=== PATIENT | female | born 1960 | race Caucasian/White ===

== ENCOUNTER 2016-06-26 08:14 | Inpatient (IN) | payer OTHER ==
[2016-06-19 13:57] VITALS: BMI 45.0
--- NOTE | 2016-06-19 14:47 | PAT Medication Instructions ---
Service Date Jun 19, 2016. Current Home Medication List Albuterol Sulfate (Proair Hfa), 2 PUFFS PO PRN Aripiprazole (Abilify), 20 MG PO HS Aspirin (Aspirin Ec), 81 MG PO QAM Buspirone Hcl (Buspirone Hcl), 1 TAB PO TID Clonazepam (Klonopin), 1 MG PO BID Cyclobenzaprine Hcl (Flexeril), 10 MG PO TID Furosemide (Lasix), 40 MG PO QAM Gabapentin (Neurontin), 200 MG PO TID Gabapentin (Neurontin), 300 MG PO HS Levothyroxine Sodium (Levothyroxine Sodium), 1 TAB PO QAM Lisinopril (Zestril), 10 MG PO QAM Meloxicam (Mobic), 7.5 MG PO BID Metformin Hcl (Glucophage *), 850 MG PO BID Metoprolol Succ (Toprol Xl) (Toprol-Xl), 75 MG PO HS Multiple Vitamin (Multivitamin), 1 TAB PO QAM Oxybutynin Chloride (Ditropan), 2.5 MG PO BID Rabeprazole Sodium (Aciphex), 20 MG PO QAM Sennosides-Docusate Sodium (Stool Softener), 1-2 TAB PO BID Simvastatin (Zocor), 40 MG PO QPM Tramadol (Ultram), 50 MG PO Q6H PRN for RN Trazodone Hcl (Trazodone), 300 MG PO HS Vortioxetine HBr (Trintellix), 30 MG PO QAM [Amphetamine Salts], 30 MG PO AM/NOON [Klor Con], 10 MEQ PO QAM [Naproxen], 1 TAB PO BID Medication Instructions For Your Scheduled Surgery - Check with surgeon for instructions: Meloxicam (Mobic), 7.5 MG PO BID [Naproxen], 1 TAB PO BID - Hold the following medications 48 hours prior to surgery: Metformin Hcl (Glucophage *), 850 MG PO BID - Hold the following medications the morning of surgery: [Klor Con], 10 MEQ PO QAM [Amphetamine Salts], 30 MG PO AM/NOON Sennosides-Docusate Sodium (Stool Softener), 1-2 TAB PO BID Multiple Vitamin (Multivitamin), 1 TAB PO QAM Oxybutynin Chloride (Ditropan), 2.5 MG PO BID Lisinopril (Zestril), 10 MG PO QAM Cyclobenzaprine Hcl (Flexeril), 10 MG PO TID Furosemide (Lasix), 40 MG PO QAM - Take the following medications the morning of surgery with a sip of water: Rabeprazole Sodium (Aciphex), 20 MG PO QAM Levothyroxine Sodium (Levothyroxine Sodium), 1 TAB PO QAM Gabapentin (Neurontin), 200 MG PO TID Buspirone Hcl (Buspirone Hcl), 1 TAB PO TID Clonazepam (Klonopin), 1 MG PO BID Albuterol Sulfate (Proair Hfa), 2 PUFFS PO PRN (bring with you to hospital morning of surgery) Aspirin (Aspirin Ec), 81 MG PO QAM (okay unless otherwise per surgeon) Tramadol (Ultram), 50 MG PO Q6H PRN for RN (okay to take up to 4 hours prior to surgery if needed) Vortioxetine HBr (Trintellix), 30 MG PO QAM - Take the following medications as scheduled the night before surgery: [Amphetamine Salts], 30 MG PO AM/NOON Trazodone Hcl (Trazodone), 300 MG PO HS Gabapentin (Neurontin), 300 MG PO HS Simvastatin (Zocor), 40 MG PO QPM Sennosides-Docusate Sodium (Stool Softener), 1-2 TAB PO BID Oxybutynin Chloride (Ditropan), 2.5 MG PO BID Metoprolol Succ (Toprol Xl) (Toprol-Xl), 75 MG PO HS Gabapentin (Neurontin), 200 MG PO TID Cyclobenzaprine Hcl (Flexeril), 10 MG PO TID Buspirone Hcl (Buspirone Hcl), 1 TAB PO TID Clonazepam (Klonopin), 1 MG PO BID Aripiprazole (Abilify), 20 MG PO HS Albuterol Sulfate (Proair Hfa), 2 PUFFS PO PRN Tramadol (Ultram), 50 MG PO Q6H PRN for RN If you have any questions please call us at [phone] (Sheryl Mehta PA-C) or [phone] or [phone]
--- NOTE | 2016-06-19 15:35 | DIAGNOSTIC IMAGING REPORT ---
CHEST 2 VIEWS ROUTINE CLINICAL HISTORY: Preoperative evaluation. COMPARISON STUDY: Chest radiograph and chest CT July 24, 2012 FINDINGS: Lung volumes are normal. There is no pneumothorax or pleural effusion. Pulmonary vascularity is normal. There is mild cardiomegaly. No consolidation is identified. IMPRESSION: 1. No acute cardiopulmonary findings. 2. Mild cardiomegaly. Electronically signed by: Gallito Anne M.D. 06/19/2016 3:33 PM Dictated Date/Time: 06/19/2016 3:32 PM
[2016-06-19 15:58] LABS: BASO % 0.5 %; BASO ABS # 0.03 K/uL (0-0.2); COMPLETE YES; EOS % 4.9 %; HEMATOCRIT 37.4 % (37-47); IG% 0.5 %; LYMPH % 38.3 %; LYMPH ABS # 2.17 K/uL (1.2-3.4); MEAN CELL VOLUME 89.9 fL (80-100); MEAN CORPUSCULAR HEMOGLOBIN 28.4 pg (25-34); MEAN CORPUSCULAR HGB CONC 31.6 g/dl (32-36); MONO % 6.7 %; NEUT % 49.1 %; PLATELET COUNT 237 K/uL (130-400); RED BLOOD COUNT 4.16 M/uL (4.2-5.4); WHITE BLOOD COUNT 5.67 K/uL (4.8-10.8)
[2016-06-19 16:24] LABS: BUN/CREATININE RATIO 22.8 (10-20); CALCIUM 9.2 mg/dl (8.5-10.1); CREATININE 0.99 mg/dl (0.60-1.20); POTASSIUM 3.9 mmol/L (3.5-5.1)
[2016-06-26] VITALS (8 sets, daily range): BP systolic 126–191; BP diastolic 80–97; PULSE 73–81; TEMP 36.5–36.8; O2SAT 92–99; Ht 175.3 cm; Wt 139.1 kg
[~2016-06-26] VITALS: Ht 175.3 cm; Wt 139.1 kg
--- NOTE | 2016-06-26 07:35 | History & Physical Bridge Note ---
H&P Re-Evaluation Bridge Note: I have examined the patient, reviewed the History & Physical and in the interval since the performance of the History & Physical I have noted the following changes of clinical significance: No changes noted
--- NOTE | 2016-06-26 08:10 | HISTORY & PHYSICAL EXAMINATION ---
DATE OF ADMISSION: 06/26/2016 CHIEF COMPLAINT: Low back pain with bilateral leg claudication. HISTORY OF PRESENT ILLNESS: Ms. Aquino is an individual who has been having symptoms in the lower portion of her back affecting both legs over the past 4 months or so. There was an episode over the summer where she felt something pop in her back and felt numbness going down the right than left hand side. Symptoms were constant. She was seen by pain management and had an MRI performed. She was sent to pain management who did not believe she was a candidate for injections and was sent to our office for surgical evaluation. Her symptoms are quite significant at this point. She has become very sedentary secondary to her pain. She denies any elizabeth weakness in her legs. PAST MEDICAL HISTORY: Significant for cholecystectomy, tonsillectomy, tubal ligation. She also suffers from alcoholism, arthritis, asthma, depression, diabetes, shortness of breath, hypercholesterolemia, obesity, cholecystitis, hypertension, heart murmur, irregular heartbeat. CURRENT MEDICATIONS: Include etodolac, clonazepam, fluoxetine, Topamax, Singulair, Zyprexa, Ritalin, simvastatin, and triamcinolone/hydrochlorothiazide. ALLERGIES: SHE HAS ALLERGIES TO PENICILLIN, VALIUM AND WELLBUTRIN. REVIEW OF SYSTEMS: Recorded in the patient's medical history. SOCIAL HISTORY: The patient is disabled. She is single, 2 children. Denies any current alcohol use, is a former smoker, quit in 2007 with significance up 2-1/2 pack a day history for 30 years. PHYSICAL EXAMINATION: GENERAL: She stands at 5 feet, 9 inches, 250 pounds. Moves slowly about the exam room. MUSCULOSKELETAL: Lower extremity motor exam reveals no focal atrophy. Strength and sensation are grossly intact. Full range of motion of her hips and knees. Gait is stable. Babinski is negative. There is no clonus. The patient is alert and oriented. Visual troy grossly intact. CARDIOVASCULAR EXAMINATION: Reveals no gross abnormalities. ABDOMEN: Soft, nontender. EXTREMITIES: Calves are supple and nontender. RADIOGRAPHIC IMAGES: MRI performed in March 2016 is available for review. This reveals significant spinal stenosis L4-5, which is severe. There is facet arthropathy with bilateral facet joint and cysts compromise the canal. While she has multilevel degenerative disc disease, L4-5 is the only level with significant neurologic compression. ASSESSMENT: L4-5 spinal stenosis which is severe. PLAN: At this point, she is not deemed a candidate for possible injections. Based on her symptoms we believe that she was a surgical candidate. Will perform a lumbar decompression at the L4-5 levels will be done in conjunction with instrumented fusion, we will have to resect a large portion of facet joints if present. Risks and benefits were discussed in detail. After thorough discussion, the patient would like to proceed with surgery as outlined above. We will make necessary arrangements for this. ASHA
[~2016-06-26 08:14] MED LIST: ABL10 PO; ALBU1AER9 PO; AMPHETAMINE SALTS PO; ASPI81TA28 PO; BUSP5TAB59 PO; CLON1TAB3 PO; CYCL10TA6 PO; FRS/40 PO; GABA-112 PO; GABA-113 PO; GLC850 PO; KLOR CON PO; LACTATED RINGER'S 1000ML 1,000 ML IV SCH; LEVO50TA6 PO; LISI-461 PO; MELO7.5T5 PO; METO50TA7 PO; MULTTAB58 PO; NAPROXEN PO; OXYB5TAB74 PO; RABE20TA5 PO; SENNTAB23 PO; SIMV40TA4 PO; TRAM-10 PO; TRAZ100T29 PO; VORT10TA12 PO
[2016-06-26] MEDS ORDERED: POTA10CA28 PO (08:44)
[2016-06-26] MEDS ORDERED: FENTANYL CITRATE INJ 50 MCG/1 ML 2 ML VIAL ONE ×2 (09:14→12:20)
[2016-06-26] MEDS ORDERED: MIDAZOLAM HCL 1 MG/ML 2ML VIAL ONE (09:14)
[2016-06-26] MEDS ORDERED: ALBUT/IPRATROP 3MG/0.5MG NEB 3 ML VIAL INH ONE (09:30)
[2016-06-26] MEDS ORDERED: ATROPINE SULFATE 0.1 MG/ML 5ML SYR IV PRN (09:30)
[2016-06-26] MEDS ORDERED: EpHEDrine SULFATE INJ 50 MG/ML AMP IV PRN (09:30)
[2016-06-26] MEDS ORDERED: PHENYLEPHRINE 100MCG/ML 5ML SYR IV PRN (09:30)
[2016-06-26] MEDS ORDERED: HYDROmorphone INJ 2 MG/ML SYR/VIAL IV PRN (09:30)
[2016-06-26] MEDS ORDERED: ONDANSETRON INJ 2 MG/ML 2 ML VIAL IV PRN ×2 (09:30→12:45)
[2016-06-26] MEDS ORDERED: CLINDAMYCIN 600 MG/54 ML D5W IV ONE (10:05)
[2016-06-26] MEDS ORDERED: GLYCOPYRROLATE INJ 0.2 MG/ML VIAL ONE (10:22)
[2016-06-26] MEDS ORDERED: PROPOFOL IV EMULSION 10 MG/ML 20 ML VIAL IV ONE ×2 (10:22→12:29)
[2016-06-26] MEDS ORDERED: NEOSTIGMINE METHYLSULFATE 1 MG/ML 10ML VIAL ONE (10:22)
[2016-06-26] MEDS ORDERED: ROCURONIUM BROMIDE 10 MG/ML 5 ML VIAL ONE (10:22)
[2016-06-26] MEDS ORDERED: LIDOCAINE 2% 20 MG/ML 5ML SYR ONE (10:22)
[2016-06-26] MEDS ORDERED: ONDANSETRON INJ 2 MG/ML 2 ML VIAL ONE (10:23)
[2016-06-26] MEDS ORDERED: DEXAMETHASONE SOD INJ 4 MG/ML VIAL ONE (10:23)
[2016-06-26] MEDS ORDERED: HYDROmorphone INJ 2 MG/ML SYR/VIAL ONE (10:56)
[2016-06-26] MEDS ORDERED: BUPIVACAINE/EPINEPHRINE 0.5% MPF 1:200,000 30 ML VIAL INJ ONE ×2 (11:06→12:28)
[2016-06-26] MEDS ORDERED: BACITRACIN 50000 UNIT VIAL IR ONE (12:28)
[2016-06-26] MEDS ORDERED: FLOSEAL HEMOSTATIC MATRIX 10ML TOP ONE (12:28)
[2016-06-26] MEDS ORDERED: SODIUM CHLORIDE 0.9% 1000ML 1,000 ML IV SCH (12:37)
--- NOTE | 2016-06-26 12:37 | [facility] Post Operative Brief Note ---
Immediate Operative Summary Operative Date Jun 26, 2016. Pre-Operative Diagnosis Lumbar Spinal Stenosis L4-L5 Post-Operative Diagnosis Lumbar Spinal Stenosis L4-L5 Procedure(s) Performed tlif Surgeon Dr. Rainey Claim Clinician Surgeon(s) EFE Banerjee Estimated Blood Loss 200 Findings stenosis Specimens none per surgeon
--- NOTE | 2016-06-26 12:43 | DIAGNOSTIC IMAGING REPORT ---
LUMBAR SPINE, INTRAOPERATIVE FLUOROSCOPY HISTORY: L4-5 decompression/fusion.. FLUOROSCOPY TIME: 22 seconds. FINDINGS: Intraoperative fluoroscopy was provided for the lumbar spine. 2 fluoroscopic spot images were obtained. L4-5 decompression and fusion. The hardware appears intact. There are pedicle screws and rods. IMPRESSION: Fluoroscopy provided for a L4-5 decompression/fusion. Electronically signed by: Jeff Noriega M.D. 06/26/2016 12:41 PM Dictated Date/Time: 06/26/2016 12:40 PM
[2016-06-26] MEDS ORDERED: MAGNESIUM HYDROXIDE SUSP 30 ML UDC PO PRN (12:45)
[2016-06-26] MEDS ORDERED: NALOXONE HCL 0.4 MG/1 ML VIAL/CARP IV PRN ×2 (12:45)
[2016-06-26] MEDS ORDERED: SOD PHOSPHATE/SOD BIPHOSPHATE ENEMA 132 ML BTL PR PRN (12:45)
[2016-06-26] MEDS ORDERED: METOCLOPRAMIDE HCL INJ 5 MG/ML 2 ML VIAL IV PRN (12:45)
[2016-06-26] MEDS ORDERED: DO NOT ADMINISTER PNEUMOCOCCAL VACCINE PRN ×2 (12:45)
[2016-06-26] MEDS ORDERED: DO NOT ADMINISTER FLU VACCINE PRN ×3 (12:45)
[2016-06-26] MEDS ORDERED: hydrOXYzine HCL 25 MG TAB PO PRN (12:45)
[2016-06-26] MEDS ORDERED: PROMETHAZINE HCL INJ 12.5 MG in SODIUM CHLORIDE 0.9% 50ML 50 ML IV PRN (12:45)
[2016-06-26] MEDS ORDERED: ACETAMINOPHEN IV 100 ML IV PRN (12:45)
[2016-06-26] MEDS ORDERED: LORAZEPAM INJ 0.5 MG in SYRINGE 0 ML IV PRN (12:45)
[2016-06-26] MEDS ORDERED: ALBUTEROL HFA 8 GM INHALER INH PRN (12:45)
[2016-06-26] MEDS ORDERED: FAMOTIDINE 20 MG TAB PO PRN (12:45)
[2016-06-26] MEDS ORDERED: ALUMINUM/MAGNESIUM SUSP 30 ML UDC PO PRN (12:45)
[2016-06-26] MEDS ORDERED: BISACODYL 10 MG SUPP PR PRN (12:45)
[2016-06-26] MEDS ORDERED: LORAZEPAM 0.5 MG TAB PO PRN (12:45)
[2016-06-26] MEDS ORDERED: ACETAMINOPHEN 500 MG TAB PO PRN (12:45)
[2016-06-26] MEDS ORDERED: PHARMACY GLYCEMIC MGMT CONSULT PRN (12:51)
--- NOTE | 2016-06-26 13:29 | OPERATIVE REPORT ---
DATE OF OPERATION: 06/26/2016 PREOPERATIVE DIAGNOSIS: Spinal stenosis L4-L5. POSTOPERATIVE DIAGNOSIS: Same. PROCEDURES PERFORMED: 1. Lumbar decompression, medial facetectomy, and foraminotomy L3-L4, L4-L5. 2. Posterior spinal fusion L4-L5. 3. Placement of posterior instrumentation using Orthros rods and screws L4-L5. 4. Interbody fusion L4-L5. 5. Placement of PEEK cage 12 x 22 mm at L4-L5. 6. Placement of locally harvested morcellized autograft in posterior gutters. 7. Placement of Infuse collagen sponge combined with Mastergraft in posterior gutters and Anabella bone grafting in interbody space. SURGEON: Dr. Santos Rainey. J2EE APPLICATION DEVELOPER: Kali Washburn PA-C. Due to the complex nature of the procedure, the entire surgery was performed with the mri assistant of EFE Romeo. The assistant research scientist, under direct supervision, was involved in the actual performance of all aspects of the surgical procedure including hemostasis, tissue retraction and incision, instrument management, patient positioning, and wound closure. ANESTHESIA: General. DISPOSITION: The patient awakened and taken to PACU in stable condition. HISTORY OF PATIENT'S PROBLEMS: This is a 56-year-old female that presents with above-mentioned diagnosis. After failing an extensive course of nonoperative care, elected to undergo the above-mentioned procedure. Risks, benefits, pros, cons, and alternatives were outlined in detail preoperatively. PROCEDURE IN DETAIL: The patient was met with preoperatively, case discussed and all questions were addressed. At that point the patient was taken back to operative suite and after undergoing successful general intubation by the department of anesthesia, was placed in prone position on William table atop Federico frame. All bony prominences were well padded and the eyes were inspected to ensure there was no external pressure placed upon them. At this point, lumbar spine was prepped and draped in normal sterile fashion. Sharp dissection with the assistance of Bovie cautery was performed down to and exposing the lamina and transverse processes of L4-L5. From a caudal to cephalad fashion, complete laminectomy of L4, partial laminectomy of L3 was performed. We identified bilateral massive facet cysts at L4-L5 and significant medial facet hypertrophy at L3-4. After complete decompression, pedicle screws were then placed in 4, 5 bilaterally with the assistance of fluoroscopy and appropriate size shahid provisionally placed. Through a transforaminal approach on the left, a complete discectomy of L4-5 was performed, endplates curetted to subcortical bleeding bone and a 12 x 22 mm PEEK cage filled with Anabella bone grafting tapped into position. The rods were then locked into final position bilaterally and transverse processes of L4-L5 burred to subcortical bleeding bone. Infuse collagen sponge combined with Mastergraft and locally harvested morcellized autograft was placed in the posterior gutters. A 7 flat XANDER drain inserted. Incision was closed with 1-0 Vicryl in the fascia, 2-0 Vicryl subcutaneously, 4-0 Monocryl for final skin closure. Steri-Strips and sterile dressing placed. The patient was awakened and taken to PACU in stable condition. I attest to the content of the Intraoperative Record and any orders documented therein. Any exceptio ns are noted below.
[2016-06-26] MEDS ORDERED: NALOXONE HCL 0.4 MG/1 ML VIAL/CARP ONE (13:33)
[2016-06-26] MEDS: HYDROmorphone HCL 0.5MG/ML 50 ML CASSETTE IV PRN ×4 (13:56→22:55)
--- NOTE | 2016-06-26 13:57 | Pharmacy Progress Note ---
Glycemic Control Intl Consult Date of Service Jun 26, 2016. Scope Glycemic Pharmacist consulted by Dr Rainey on 06/26/16 for glycemic control and to write orders per [facility] inpatient glycemic control protocol Objective Weight (Kilograms): 139.10 Accuchecks BSG (last 24hrs): Test 06/26/16 09:04 Bedside Glucose 110 mg/dl (70-90) Recent Pertinent Medications Outpatient Anti-diabetic Regimen: * Metformin 850mg po BID * A1c unknown, ordered today Risk Factors for Insulin Resistance: * Steroids: Dexamethasone 8mg IV pre op + 6mg IV q8h x 3 doses post op * Recent Surgery: POD#0 lumbar decompression * Diet: Regular Assessment & Plan ASSESSMENT: * ADA & AACE recommend a goal blood sugar range 140-180 mg/dl for the majority of critically ill & non-critically ill patients. However, more stringent targets may be selected in individual cases. I will use a goal range of 110- 140mg/dL for patient's age, fasting BSG of 110mg/dL today, and to facilitate healing postop. * 56 year old type 2 diabetic, unknown control at home, only on Metformin as outpatient, fasting BSG 110mg/dl today. * Patient has received IV Dexamethasone pre-op and will have 3 more doses post op, likely leading to hyperglycemia. * I will start patient on weight based correctional and prandial insulin, and accuchecks overnight. * I will also place a pending order for Lantus dose tonight. PLAN FOR INPATIENT GLYCEMIC CONTROL: * Holding outpatient oral diabetes medications - restart metformin 24-48 hours prior to discharge after diet resumed and kidney function evaluated * Correctional Insulin with NOVOLOG per scale ACHS and at 00:00 and 04:00 * Goal Range: Low 110 mg/dL - High 140 mg/dL * Correction Factor: 18 mg/dL/unit * Nutritional / Prandial insulin per carb ratio of 1 unit per 6 grams CHO consumed * Pending order: Lantus 15 units SQ x 1 dose tonight at 2100 for BSG > 250mg/dL * Please note that the plan above was derived based on current level of insulin resistance and hospital stress. These recommendations are appropriate for inpatient admission only. Plan of care upon discharge will need to be reassessed to avoid potential outpatient hypo/hyperglycemia. Thank you.
--- NOTE | 2016-06-26 13:58 | Anesthesiology Progress Note ---
Anesthesia Post Op Note Date & Time Jun 26, 2016 at 13:57 Vital Signs Pain Intensity: 0 Vital Signs Past 12 Hours Date Time Temp Pulse Resp B/P Pulse Ox O2 Delivery O2 Flow Rate FiO2 06/26/16 13:43 83 16 163/79 100 06/26/16 13:43 83 16 06/26/16 13:38 86 13 151/79 98 06/26/16 13:38 85 13 06/26/16 13:37 85 14 97 06/26/16 13:37 85 14 06/26/16 13:33 151/78 06/26/16 13:32 88 10 06/26/16 13:32 93 10 96 06/26/16 13:28 142/80 06/26/16 13:27 90 12 06/26/16 13:27 36.1 92 16 131/77 96 Mask 10 06/26/16 13:27 90 12 98 06/26/16 08:46 36.8 81 20 191/97 92 Room Air Notes Mental Status: alert / awake / arousable, participated in evaluation Pt Amnestic to Procedure: Yes Nausea / Vomiting: adequately controlled Pain: adequately controlled Airway Patency, RR, SpO2: stable & adequate BP & HR: stable & adequate Hydration State: stable & adequate Anesthetic Complications: no major complications apparent
[2016-06-26] MEDS ORDERED: GLUCAGON FOR INJ 1 MG VIAL SQ PRN (14:15)
[2016-06-26] MEDS ORDERED: GLUCOSE 40% GEL 15 GM TUBE PO PRN (14:15)
[2016-06-26] MEDS ORDERED: GLUCOSE 10 TABS/TUBE PO PRN (14:15)
[2016-06-26] MEDS ORDERED: DEXTROSE 50% 50 ML SYR IV PRN (14:15)
[2016-06-26] MEDS: LACTATED RINGER'S 1000ML 1,000 ML IV SCH ×3 (15:30→20:51)
--- NOTE | 2016-06-26 15:36 | Medical Consult ---
Consultation Date of Consultation: Jun 26, 2016. Attending Physician: Santos Rainey D.O. Reason for Consultation: Postop Medical Management History of Present Illness Patient seen and examined. 56 year old female with PMHx of DM2, HTN,, COPD, Diastolic CHF, Hypothyroidism, HLD, and H/O AVR is seen in consultation for postop medical management following a L4-L5 decompression fusion by Dr. Rainey. Patient reports she has some pain but it is tolerable. She states she is mostly groggy. She denies fevers, chills, URI symptoms, chest pain, SOB, nausea, vomiting, diarrhea, dysuria, calf pain and edema. States she chronically has buttock and feet numbness, denies any new numbness. Denies history of VTE. Last BM this morning. States she is hungry. Past Medical/Surgical History Medical Problems: (1) COPD (chronic obstructive pulmonary disease) Status: Chronic (2) Depression Status: Chronic (3) DM2 (diabetes mellitus, type 2) Status: Chronic (4) GERD (gastroesophageal reflux disease) Status: Chronic (5) HLD (hyperlipidemia) Status: Chronic (6) HTN (hypertension) Status: Chronic (7) Hypothyroidism Status: Chronic (8) Stress incontinence Status: Chronic Surgical Problems: (1) H/O dilation and curettage Status: Chronic (2) H/O tubal ligation Status: Chronic (3) Hx of tonsillectomy Status: Chronic (4) Hx of total knee arthroplasty Status: Chronic (5) S/P AVR Status: Chronic (6) S/P cholecystectomy Status: Chronic Family History Diabetes mellitus FH: cancer FH: heart disease Hypertension Social History Smoking Status: Former Smoker Alcohol Use: none Marital Status: single Allergies Coded Allergies: Diazepam (Verified Allergy, Unknown, rash, 06/26/16) Penicillins (Verified Allergy, Unknown, RASH, FACIAL/EYES/THROAT SWELLING , 06/26/16) Bupropion (Verified Adverse Reaction, Unknown, emotionally disturbed, 06/26) Uncoded Nonscreenable Allergen (Verified Adverse Reaction, Unknown, TALCUM = LOCALIZAED RASH, 06/26/16) Current Inpatient Medications Current Inpatient Medications Medications (Trade) Dose Ordered Sig/Dave Route Start Time Stop Time Status Last Admin Dose Admin Lactated Ringer's 1,000 ml @ 15 mls/hr Q24H IV 06/26/16 06:00 06/27/16 05:59 Clindamycin Phosphate 600 mg/ Dextrose 54 ml @ 100 mls/hr Q8H IV 06/26/16 12:45 06/26/16 21:18 UNV Dexamethasone Sodium Phosphate 6 mg/Syringe 1.5 ml @ 1 mls/min Q8H IV 06/26/16 12:45 06/27/16 04:47 UNV Promethazine HCl/ Sodium Chloride (Phenergan Inj/ Nss 50ml) 50.5 ml @ 202 mls/hr Q6H PRN IV 06/26/16 12:45 07/26/16 12:44 Ondansetron HCl (Zofran Inj) 4 mg Q6H PRN IV 06/26/16 12:45 07/26/16 12:44 Metoclopramide HCl (Reglan Inj) 10 mg Q6H PRN IV 06/26/16 12:45 07/26/16 12:44 Pneumococcal Polysaccharide Vaccine 1 ea PRN PRN N/A 06/26/16 12:45 07/26/16 12:44 Influenza Virus Vacc Triv Types A&B 1 ea PRN PRN N/A 06/26/16 12:45 07/26/16 12:44 Polyethylene (Miralax Powder Packet) 17 gm Q6 PO 06/28/16 06:00 07/28/16 05:59 UNV Bisacodyl (Dulcolax Supp) 10 mg DAILY PRN IA 06/26/16 12:45 07/26/16 12:44 Magnesium Hydroxide (Milk Of Magnesia Susp) 30 ml DAILY PRN PO 06/26/16 12:45 07/26/16 12:44 Hydromorphone HCl (Dilaudid Inj) 0.5-1mg prn moder... Q3H PRN IV 06/27/16 06:00 07/11/16 05:59 Oxycodone HCl 5-10mg prn moderate to sev... Q4H PRN PO 06/27/16 06:00 07/11/16 05:59 Lactated Ringer's (Lr 1000ml) 1,000 ml @ 150 mls/hr Q6H40M IV 06/26/16 12:37 07/26/16 12:36 UNV Acetaminophen 1000 mg 1,000 mg Q8H PRN PO 06/26/16 12:45 07/26/16 12:44 Acetaminophen (Ofirmev Iv) 100 ml @ 400 mls/hr Q8H PRN IV 06/26/16 12:45 07/26/16 12:44 Naloxone HCl (Narcan Inj) 0.1 mg Q5M PRN IV 06/26/16 12:45 07/26/16 12:44 Senna/Docusate Sodium (Senokot S Tab) 2 tab HS PO 06/26/16 21:00 07/26/16 20:59 UNV Sodium Biphosphate/ Sodium Phosphate (Fleet Enema) 132 ml ONE PRN IA 06/26/16 12:45 07/26/16 12:44 Hydroxyzine HCl (Vistaril Tab) 25 mg Q8H PRN PO 06/26/16 12:45 07/26/16 12:44 Al Hydroxide/Mg Hydroxide (Maalox Susp) 30 ml Q6H PRN PO 06/26/16 12:45 07/26/16 12:44 Famotidine (Pepcid Tab) 20 mg Q12 PRN PO 06/26/16 12:45 07/26/16 12:44 Diphenhydramine HCl (Benadryl Cap) 25 mg Q6H PRN PO 06/26/16 12:45 07/26/16 12:44 Miscellaneous Information (Discontinue [employer]STRUCTION [employer]) 1 ea DIRECTED PRN N/A 06/27/16 06:00 07/27/16 05:59 Naloxone HCl (Narcan Inj) 0.1 mg Q5M PRN IV 06/26/16 12:45 06/27/16 06:00 Hydromorphone HCl 25 mg 25 mg PRN PRN IV 06/26/16 12:45 06/27/16 06:00 06/26/16 15:06 25 MG Sodium Chloride (Nss 1000ml) 1,000 ml @ 15 mls/hr Q24H IV 06/26/16 12:37 06/27/16 06:00 Albuterol (Ventolin Hfa Inhaler) 2 puffs Q4H PRN INH 06/26/16 12:45 07/26/16 12:44 Aripiprazole (Abilify Tab) 20 mg HS PO 06/26/16 21:00 07/26/16 20:59 UNV Aspirin (Ecotrin Tab) 81 mg QAM PO 06/27/16 09:00 07/27/16 08:59 UNV Buspirone HCl (Buspar Tab) 5 mg TID PO 06/26/16 14:00 07/26/16 13:59 UNV Clonazepam (Klonopin Tab) 1 mg BID PO 06/26/16 21:00 07/26/16 20:59 Furosemide (Lasix Tab) 40 mg QAM PO 06/27/16 09:00 07/27/16 08:59 UNV Gabapentin (Neurontin Cap) 200 mg TID@0900,1300,1700 PO 06/26/16 17:00 07/26/16 16:59 UNV Gabapentin (Neurontin Cap) 300 mg HS PO 06/26/16 21:00 07/26/16 20:59 UNV Levothyroxine Sodium (Synthroid Tab) 50 mcg QAM PO 06/27/16 09:00 07/27/16 08:59 UNV Lisinopril (Zestril Tab) 10 mg QAM PO 06/27/16 09:00 07/27/16 08:59 UNV Metoprolol Succinate (Toprol Xl Tab) 75 mg HS PO 06/26/16 21:00 07/26/16 20:59 UNV Oxybutynin Chloride (Ditropan Tab) 2.5 mg BID PO 06/26/16 21:00 07/26/16 20:59 UNV Potassium Chloride (Klor-Con M10) 10 meq DAILY PO 06/27/16 09:00 07/27/16 08:59 UNV Simvastatin (Zocor Tab) 40 mg QPM PO 06/26/16 21:00 07/26/16 20:59 UNV Trazodone HCl (Desyrel Tab) 300 mg HS PO 06/26/16 21:00 07/26/16 20:59 UNV Miscellaneous Information (Consult Glycemic Management Pharmacy) 1 ea UD PRN N/A 06/26/16 12:51 07/26/16 12:50 Insulin Aspart (novoLOG ASPART) SLIDING SCALE ACHS SC 06/26/16 16:00 07/26/16 15:59 Glucose (Glucose 40% Gel) 15-30 GRAMS 15 GRAMS... UD PRN PO 06/26/16 14:15 07/26/16 14:14 Glucose (Glucose Chew Tab) 4-8 Tablets 4 Tabl... UD PRN PO 06/26/16 14:15 07/26/16 14:14 Dextrose (Dextrose 50% 50ML Syringe) 25-50ML OF 50% DW IV FOR... UD PRN IV 06/26/16 14:15 07/26/16 14:14 Glucagon (Glucagon Inj) 1 mg UD PRN SQ 06/26/16 14:15 07/26/16 14:14 Insulin Aspart (novoLOG ASPART) SLIDING SCALE 0000,0400 SC 06/27/16 00:00 07/27/16 00:00 Miscellaneous Information (Pending Order) 1 ea TODAY@2100 ONCE N/A 06/26/16 21:00 06/26/16 21:01 Review of Systems See above for pertinent positives & negatives. A total of 10 systems reviewed and were otherwise negative. Physical Exam Date Time Temp Pulse Resp B/P Pulse Ox O2 Delivery O2 Flow Rate FiO2 06/26/16 14:30 82 16 06/26/16 14:30 81 16 97 06/26/16 14:30 36.6 06/26/16 14:28 141/72 06/26/16 14:25 74 14 06/26/16 14:25 74 14 96 06/26/16 14:23 141/78 06/26/16 14:20 78 16 95 06/26/16 14:20 71 16 06/26/16 14:18 139/80 06/26/16 14:15 36.2 06/26/16 14:15 80 16 95 06/26/16 14:15 70 16 06/26/16 14:13 135/64 06/26/16 14:10 77 16 95 06/26/16 14:10 77 16 06/26/16 14:09 79 16 140/76 96 06/26/16 14:09 78 16 06/26/16 14:04 78 16 95 06/26/16 14:04 79 16 06/26/16 14:03 135/73 06/26/16 13:59 81 29 06/26/16 13:59 81 29 146/62 99 06/26/16 13:54 82 16 100 06/26/16 13:54 78 16 06/26/16 13:53 137/91 06/26/16 13:49 88 12 06/26/16 13:49 88 12 100 06/26/16 13:48 145/84 06/26/16 13:44 83 15 06/26/16 13:44 83 15 100 06/26/16 13:43 83 16 163/79 100 06/26/16 13:43 83 16 06/26/16 13:38 86 13 151/79 98 06/26/16 13:38 85 13 06/26/16 13:37 85 14 97 06/26/16 13:37 85 14 06/26/16 13:33 151/78 06/26/16 13:32 88 10 06/26/16 13:32 93 10 96 06/26/16 13:28 142/80 06/26/16 13:27 90 12 06/26/16 13:27 36.1 92 16 131/77 96 Mask 10 06/26/16 13:27 90 12 98 06/26/16 08:46 36.8 81 20 191/97 92 Room Air General Appearance: + pertinent finding (Groggy, obese 56 year old female lying in bed in NAD ) Head: normocephalic, atraumatic Eyes: EOMI, sclerae normal ENT: hearing grossly normal, pharynx normal Neck: supple, no JVD, trachea midline Respiratory/Chest: chest non-tender, lungs clear, normal breath sounds, no respiratory distress, no accessory muscle use Cardiovascular: regular rate, rhythm, no edema, no gallop, no JVD, normal peripheral pulses, + systolic murmur Abdomen/GI: normal bowel sounds, non tender, soft Extremities/Musculoskelatal: no calf tenderness, normal capillary refill, no pedal edema Neurologic/Psych: + pertinent finding (Groggy, but alert and oriented x 3, no focal deficits noted on gross exam ) Skin: normal color, warm/dry, no rash Lymphatic: no adenopathy Laboratory Results Last 24 Hours Test 06/26/16 09:04 06/26/16 13:38 Bedside Glucose 110 mg/dl 127 mg/dl Assessment & Plan L4-L5 DECOMPRESSION FUSION -POD#[address] Rainey -Management as per ortho to include- pain control, bowel regimen, DVT prophylaxis, PT/OT, incentive spirometry, wound care -EBL 200ml -Follow H&H daily for postop anemia, preop was 11.8 -CBC, PRP, Mg daily DM2 -A1c pending -Hold po diabetic agents -SSI coverage -BSG AC HS -Consistent carbohydrate diet -pharmacy on board DIASTOLIC CHF -Preserved EF -grade 1 diastolic dysfunction, valvular disease - continue Lasix -decrease IVFs to 100ml/hr to avoid volume overload HTN -running a little high -continue home lisinopril, metoprolol -pain control per ortho -decrease IVF rate -monitor per routine COPD -stable -continue home inhalers HLD -continue statin DEPRESSION -continue home antidepressants HYPOTHYROIDISM -continue Synthroid STRESS INCONTINENCE -continue oxybutynin GERD -continue PPI H/O AVR [place] [facility] [place] DVT PROPHYLAXIS: per ortho DISPO:per ortho Patient seen in collaboration with Dr. Jimenez Thank you for this consultation. We will follow the patient with you during their hospital stay. You can reach a member of the [facility] 28/12 via pager @ [phone]. Attending Note: Patient is a 56yr old female with PMH of DM II, HTN, COPD, DHF, Hypothyroidism, HLD, AVR and spinal stenosis who underwent elective L4-L5 decompression fusion by Dr. Rainey is requested for medical management post OP. Patient is seen and examined along with Kailee Dean-PAC. Patient tolerated the procedure well and complains of mild pain at the surgical site. Denies any chest pain,. SOB, dizziness. Physical Exam: Vitals signs as noted above General Appearance:Moderately built and nourished, no apparent distress, obese Head: normocephalic, Atraumatic Eyes: normal inspection, EOMI, PERRLA, Anicteric Neck: supple, no JVD, Trachea midline, No JVD Respiratory/Chest: Normal Vesicular breath sounds, CTA, No accessory muscle use Cardiovascular: S1, S2, NSR, No murmur Abdomen/GI:Soft, Protuberant, Non tender, Bowel sounds present, No guarding/ rigidity/organomegaly Extremities/Musculoskelatal:normal inspection, no calf tenderness, cyanosis, clubbing, edema Neurologic/Psych:AAOX3, grossly no focal deficits, complete neuro exam not performed as post OP Skin: normal color, warm, Surgical site in back in bandage Assessment and Plan: Spinal Stenosis S/P L4-L5 decompression/fusion POD #0 Currently doing well post OP Pain control and anticoagulation per primary team on board Bowel regimen to prevent constipation Wound care, PT/OT Monitor Hb DM II ISS, Accu checks Diabetic diet Hold metformin Agree with assessment and plan of Ester Dean PA-C as above
[2016-06-26] MEDS: DEXAMETHASONE INJ 6 MG in SYRINGE 0 ML IV SCH ×2 (16:05→23:53)
[2016-06-26] MEDS: GABAPENTIN 100 MG CAP PO SCH (17:25)
[2016-06-26] MEDS: CLINDAMYCIN IV 600 MG in DEXTROSE 5% ADD-VANTAGE 50ML 50 ML IV SCH (17:27)
[2016-06-26] MEDS: INSULIN ASPART 100 UNITS/ML 3 ML PEN SC SCH ×3 (18:30→23:56)
[2016-06-26] MEDS: TRAZODONE HCL 100 MG TAB PO SCH (20:44)
[2016-06-26] MEDS: DOCUSATE SODIUM/SENNA 50/8.6MG TAB PO SCH (20:45)
[2016-06-26] MEDS: GABAPENTIN 300 MG CAP PO SCH (20:45)
[2016-06-26] MEDS: ARIPIprazole TAB 10 MG TAB PO SCH (20:46)
[2016-06-26] MEDS: CLONAZEPAM 1 MG TAB PO SCH (20:47)
[2016-06-26] MEDS: METOPROLOL SUCC 25MG EXT REL TAB PO SCH (20:47)
[2016-06-26] MEDS: OXYBUTYNIN CHLORIDE 5 MG TAB PO SCH (20:48)
[2016-06-26] MEDS: SIMVASTATIN 40 MG TAB PO SCH (20:48)
[2016-06-26] MEDS ORDERED: DOCUSATE SODIUM/SENNA 50/8.6MG TAB PO SCH (21:00)
[2016-06-27] VITALS (8 sets, daily range): BP systolic 108–132; BP diastolic 68–83; PULSE 66–86; TEMP 36.6–37; O2SAT 86–97
[2016-06-27] MEDS: CLINDAMYCIN IV 600 MG in DEXTROSE 5% ADD-VANTAGE 50ML 50 ML IV SCH (02:00)
[2016-06-27] MEDS: INSULIN ASPART 100 UNITS/ML 3 ML PEN SC SCH ×5 (04:02→21:23)
[2016-06-27] MEDS: LACTATED RINGER'S 1000ML 1,000 ML IV SCH (04:05)
[2016-06-27] MEDS ORDERED: HYDROmorphone INJ 1 MG/ML SYR IV PRN (06:00)
[2016-06-27] MEDS ORDERED: CEFAZOLIN 3000 MG/65 ML D5W IV SCH (06:00)
[2016-06-27] MEDS ORDERED: DC PCA PRN (06:00)
[2016-06-27 06:04] LABS: BASO % 0.1 %; BASO ABS # 0.01 K/uL (0-0.2); COMPLETE YES; HEMATOCRIT 31.8 % (37-47); IG% 0.5 %; LYMPH % 9.8 %; LYMPH ABS # 0.78 K/uL (1.2-3.4); MEAN CELL VOLUME 89.8 fL (80-100); MEAN CORPUSCULAR HEMOGLOBIN 28.5 pg (25-34); MEAN CORPUSCULAR HGB CONC 31.8 g/dl (32-36); NEUT % 86.6 %; PLATELET COUNT 230 K/uL (130-400); RED BLOOD COUNT 3.54 M/uL (4.2-5.4); WHITE BLOOD COUNT 7.92 K/uL (4.8-10.8)
[2016-06-27] MEDS: LEVOTHYROXINE 50 MCG TAB PO SCH (06:14)
[2016-06-27 06:36] LABS: BUN/CREATININE RATIO 18.7 (10-20); CALCIUM 8.4 mg/dl (8.5-10.1); CREATININE 0.83 mg/dl (0.60-1.20); POTASSIUM 4.2 mmol/L (3.5-5.1)
[2016-06-27 06:42] LABS: ESTIMATED AVERAGE GLUCOSE 126 mg/dl; HA1C FLAG Normal (Normal)
[2016-06-27] MEDS ORDERED: NURSING VERBAL MED ORDER ONE (06:45)
[2016-06-27] MEDS: POTASSIUM CHLORIDE 10 MEQ TABCR PO SCH (08:45)
[2016-06-27] MEDS: DEXAMETHASONE INJ 6 MG in SYRINGE 0 ML IV SCH (08:45)
[2016-06-27] MEDS: OXYBUTYNIN CHLORIDE 5 MG TAB PO SCH ×2 (08:47→21:09)
[2016-06-27] MEDS: LISINOPRIL 10 MG TAB PO SCH (08:47)
[2016-06-27] MEDS: GABAPENTIN 100 MG CAP PO SCH ×3 (08:47→17:08)
[2016-06-27] MEDS ORDERED: RXC5 PO (08:48)
[2016-06-27] MEDS: FUROSEMIDE 40 MG TAB PO SCH (08:48)
[2016-06-27] MEDS: ASPIRIN 81 MG ECTAB PO SCH (08:48)
[2016-06-27] MEDS: CLONAZEPAM 1 MG TAB PO SCH ×2 (08:49→21:27)
--- NOTE | 2016-06-27 08:49 | Discharge Instructions ---
Discharge Instructions Admission Reason for Admission: Lumbar Spinal Stenosis L4-5 Discharge Discharge Diagnosis / Problem: stenosis Discharge Goals Goal(s): Improve function Activity Recommendations Activity Limitations: per Instructions/Follow-up section . Instructions / Follow-Up Instructions / Follow-Up ACTIVITY RECOMMENDATIONS: SELF CARE INSTRUCTIONS AFTER THORACIC/LUMBAR FUSIONS 1. You may walk to your tolerance. It is good exercise for your legs and back. Expect some back and intermittent leg aches and pains. 2. You may perform "counter-top" level activities (make a sandwich, stacy with a project, etc.). 3. No bending or lifting of more than 10 pounds or back twisting of any nature (roll like a log when turning in bed). 4. You may ride in a car for 20-30 minutes at a time. No driving until after your first visit with your doctor. 5. Frequent changes of position and restricting sitting to 30 minutes at a time will help limit the amount of back spasms and stiffness you may experience. 6. You may discontinue the use of ambulatory aids (cane, crutches, etc.) once your strength and confidence allow. 7. You may director labor standards the shower and let water strike your incision when you arrive home at least once daily. Do not take a tub bath, sit in a hot tub or go into a swimming pool until after your first recheck in the office. SPECIAL CARE INSTRUCTIONS: VERY IMPORTANT TO READ AND REVIEW A. Your surgical incision has been closed with a cosmetic suture under the skin that will dissolve in about 6 weeks. In 14 days, you can use a pair of clean scissors and cut the suture that is left outside of the skin at the ends of your incision. 1. The small skin tapes can be removed 7 days after surgery if they have not fallen off by that point. 2. You may keep the wound open to air as much as possible to promote healing after post-op day number 5 unless told otherwise by your doctor. 3. If you think the wound looks like it is becoming infected (redness or worsening drainage) and/or you are experiencing fever, chill or worsening back pain and muscle spasms, contact the office so that we may evaluate you as soon as possible. B. Complications are uncommon, but please contact us if you have any signs or symptoms of: 1. wound infection (fever higher than 102.5 degrees F, redness, separation of wound, drainage, or increasing pain from the incision) 2. blood clots in legs (pain, swelling, redness and warmth in legs) 3. urinary tract infection (fever higher than 102.5 degrees F, burning upon urination or increased frequency of urination) 4. nerve problems (inability to walk on your toes or heels, numbness, loss of bowel or bladder control) 5. any other symptoms that concern you C. Please call the office at if you have any concerns or questions about your operation or recovery. D. No smoking! Smoking drastically decreases the chance of a solid fusion. E. Do not take any anti-inflammatory medications (Indocin, Advil, Motrin, Aspirin, Naprosyn, etc.) as these may inhibit the chance of a solid fusion. Tylenol is okay to take for pain. MANAGING PAIN AFTER SPINAL SURGERY 1. Narcotic medication is intended for short-term use and will be provided for surgical pain. Surgical pain usually lasts for a period of 4-6 weeks. Narcotic medication includes Percocet, Vicodin, Darvocet, Tylenol #3 or Lortab. 2. Longer-term pain is more appropriately treated with non-narcotic medication such as Tylenol ES. 3. Muscle spasm is not appropriately treated with narcotics. Muscle relaxers such as Soma, Flexeril or Skelaxin can be used along with Tylenol ES. 4. Remember that we all live with some "aches and pains". This is not unusual or uncommon after an injury or as we get older. a. Back pain is expected and may include muscle spasms for 4 to 6 weeks after surgery. The pain should gradually improve. If the pain worsens for no apparent reason, please contact the office. b. Intermittent leg pain may also be experienced and should not be concerned about unless it worsens for no apparent reason. If so, please contact the office. 5. We will provide appropriate medication within the normal guidelines of their prescribed use. We will also be very cautious and aware of potential abuse and extended duration of patients' medication needs. a. Pain medications are for your comfort and to assist with sleep and rest so that the tissue can heal. They are not provided in order to return to normal activity and should not be used through the day. To do so or worsening pain at night can result from ongoing tissue damage and development of tolerance to the prescribed medicine. 6. Please allow 2-3 days to process refills. Prescriptions will not be mailed but must be picked up at the office. FOLLOW UP VISIT: Keep your scheduled follow-up appointment. Any questions, please call the office at . Current Hospital Diet Patient's current hospital diet: Diabetes Type 2 Diet, AHA Diet (Heart Healthy) Discharge Diet Recommended Diet: Regular Diet Procedures Procedures Performed: L4-L5 Decompression; Posterior Spinal Fusion; Instrumentation; Application of Interbody Cage, Applicatoin of Bone Morphogenetic Protein and [place]abella Pending Studies Studies pending at discharge: no Laboratory Results Hemoglobin A1c Test 06/27/16 05:40 Range/Units Estimated Average Glucose 126 mg/dl Hemoglobin A1c 6.0 H 4.5-5.6 % Medical Emergencies . Who to Call and When: Medical Emergencies: If at any time you feel your situation is an emergency, please call 911 immediately. . Non-Emergent Contact Non-Emergency issues call your: Primary Care Provider . "Provider Documentation" section prepared by Santos Rainey. VTE Core Measure Inpt VTE Proph given/why not?: Timo Solomon, SCD's
--- NOTE | 2016-06-27 09:49 | PROGRESS NOTE ---
DATE: 06/27/2016 DATE: 06/27/2016. SUBJECTIVE: Postop day 1. Back pain controlled. Leg pain improved. Vital signs stable. T-max 36.7. XANDER drained 25 mL. Hematocrit this a.m. 31.8. OBJECTIVE: On exam the patient is in chair at bedside. Demonstrates good strength to testing, appears comfortable. ASSESSMENT: Status post lumbar decompression and fusion. PLAN: At this time, will initiate physical therapy, advance her bowel regimen and anticipate home Wednesday.
--- NOTE | 2016-06-27 10:27 | Progress Note ---
Subjective Date of Service: Jun 27, 2016. Subjective Pt evaluation today including: conversation w/ patient, physical exam, lab review, review of studies, review of inpatient medication list Saw/examined the patient in room 317 Doing well, post-operatively walked around with PT with a walker and did well Pain controlled Good PO intake No BMs yet Review of Systems Constitutional: + weakness, No chills, No fever Respiratory: No cough, No dyspnea at rest, No dyspnea on exertion, No hemoptysis, No shortness of breath, No sputum, No wheezing Cardiac: No chest pain, No edema, No orthopnea, No palpitations Abdomen: + constipation, No GI bleeding, No diarrhea, No nausea, No pain, No vomiting Musculoskeletal: + joint pain (low back; controlled with medications) Medications Current Inpatient Medications Medications (Trade) Dose Ordered Sig/Dave Route Start Time Stop Time Status Last Admin Dose Admin Promethazine HCl/ Sodium Chloride (Phenergan Inj/ Nss 50ml) 50.5 ml @ 202 mls/hr Q6H PRN IV 06/26/16 12:45 07/26/16 12:44 Ondansetron HCl (Zofran Inj) 4 mg Q6H PRN IV 06/26/16 12:45 07/26/16 12:44 Metoclopramide HCl (Reglan Inj) 10 mg Q6H PRN IV 06/26/16 12:45 07/26/16 12:44 Pneumococcal Polysaccharide Vaccine 1 ea PRN PRN N/A 06/26/16 12:45 07/26/16 12:44 Influenza Virus Vacc Triv Types A&B 1 ea PRN PRN N/A 06/26/16 12:45 07/26/16 12:44 Polyethylene (Miralax Powder Packet) 17 gm Q6 PO 06/28/16 06:00 07/28/16 05:59 Bisacodyl (Dulcolax Supp) 10 mg DAILY PRN ME 06/26/16 12:45 07/26/16 12:44 Magnesium Hydroxide (Milk Of Magnesia Susp) 30 ml DAILY PRN PO 06/26/16 12:45 07/26/16 12:44 Hydromorphone HCl (Dilaudid Inj) 0.5-1mg prn moder... Q3H PRN IV 06/27/16 06:00 07/11/16 05:59 Oxycodone HCl (Roxicodone Immediate Rel Tab) 5-10mg prn moderate to sev... Q4H PRN PO 06/27/16 06:00 07/11/16 05:59 Acetaminophen 1000 mg 1,000 mg Q8H PRN PO 06/26/16 12:45 07/26/16 12:44 Acetaminophen (Ofirmev Iv) 100 ml @ 400 mls/hr Q8H PRN IV 06/26/16 12:45 07/26/16 12:44 Naloxone HCl (Narcan Inj) 0.1 mg Q5M PRN IV 06/26/16 12:45 07/26/16 12:44 Senna/Docusate Sodium (Senokot S Tab) 2 tab HS PO 06/26/16 21:00 07/26/16 20:59 06/26/16 20:45 2 TAB Sodium Biphosphate/ Sodium Phosphate (Fleet Enema) 132 ml ONE PRN ME 06/26/16 12:45 07/26/16 12:44 Hydroxyzine HCl (Vistaril Tab) 25 mg Q8H PRN PO 06/26/16 12:45 07/26/16 12:44 Al Hydroxide/Mg Hydroxide (Maalox Susp) 30 ml Q6H PRN PO 06/26/16 12:45 07/26/16 12:44 Famotidine (Pepcid Tab) 20 mg Q12 PRN PO 06/26/16 12:45 07/26/16 12:44 Diphenhydramine HCl (Benadryl Cap) 25 mg Q6H PRN PO 06/26/16 12:45 07/26/16 12:44 Miscellaneous Information (Discontinue CHIEF DISPATCHER) 1 ea DIRECTED PRN N/A 06/27/16 06:00 07/27/16 05:59 Albuterol (Ventolin Hfa Inhaler) 2 puffs Q4H PRN INH 06/26/16 12:45 07/26/16 12:44 Aripiprazole (Abilify Tab) 20 mg HS PO 06/26/16 21:00 07/26/16 20:59 06/26/16 20:46 20 MG Aspirin (Ecotrin Tab) 81 mg QAM PO 06/27/16 09:00 07/27/16 08:59 06/27/16 08:48 81 MG Buspirone HCl (Buspar Tab) 5 mg TID PO 06/26/16 14:00 07/26/16 13:59 06/27/16 08:45 5 MG Clonazepam (Klonopin Tab) 1 mg BID PO 06/26/16 21:00 07/26/16 20:59 Furosemide (Lasix Tab) 40 mg QAM PO 06/27/16 09:00 07/27/16 08:59 06/27/16 08:48 40 MG Gabapentin (Neurontin Cap) 200 mg TID@0900,1300,1700 PO 06/26/16 17:00 07/26/16 16:59 06/27/16 08:47 200 MG Gabapentin (Neurontin Cap) 300 mg HS PO 06/26/16 21:00 07/26/16 20:59 06/26/16 20:45 300 MG Levothyroxine Sodium (Synthroid Tab) 50 mcg DAILYBB PO 06/27/16 06:00 07/27/16 05:59 06/27/16 06:14 50 MCG Lisinopril (Zestril Tab) 10 mg QAM PO 06/27/16 09:00 07/27/16 08:59 06/27/16 08:47 10 MG Metoprolol Succinate (Toprol Xl Tab) 75 mg HS PO 06/26/16 21:00 07/26/16 20:59 06/26/16 20:47 75 MG Oxybutynin Chloride (Ditropan Tab) 2.5 mg BID PO 06/26/16 21:00 07/26/16 20:59 06/27/16 08:47 2.5 MG Potassium Chloride (Klor-Con M10) 10 meq DAILY PO 06/27/16 09:00 07/27/16 08:59 06/27/16 08:45 10 MEQ Simvastatin (Zocor Tab) 40 mg QPM PO 06/26/16 21:00 07/26/16 20:59 06/26/16 20:48 40 MG Trazodone HCl (Desyrel Tab) 300 mg HS PO 06/26/16 21:00 07/26/16 20:59 06/26/16 20:44 300 MG Miscellaneous Information (Consult Glycemic Management Pharmacy) 1 ea UD PRN N/A 06/26/16 12:51 07/26/16 12:50 Insulin Aspart (novoLOG ASPART) SLIDING SCALE ACHS SC 06/26/16 16:00 07/26/16 15:59 06/27/16 08:52 5 UNITS Glucose (Glucose 40% Gel) 15-30 GRAMS 15 GRAMS... UD PRN PO 06/26/16 14:15 07/26/16 14:14 Glucose (Glucose Chew Tab) 4-8 Tablets 4 Tabl... UD PRN PO 06/26/16 14:15 07/26/16 14:14 Dextrose (Dextrose 50% 50ML Syringe) 25-50ML OF 50% DW IV FOR... UD PRN IV 06/26/16 14:15 07/26/16 14:14 Glucagon (Glucagon Inj) 1 mg UD PRN SQ 06/26/16 14:15 07/26/16 14:14 Objective Vital Signs Date Time Temp Pulse Resp B/P Pulse Ox O2 Delivery O2 Flow Rate FiO2 06/27/16 08:20 Room Air 06/27/16 06:54 36.7 81 18 114/73 94 Nasal Cannula 3.0 06/27/16 06:25 76 93 Nasal Cannula 2.0 06/27/16 06:25 86 Room Air 06/27/16 04:07 86 93 Room Air 2.0 06/27/16 04:00 36.6 83 16 123/83 97 Nasal Cannula 4.0 06/26/16 23:38 94 Nasal Cannula 4.0 06/26/16 23:13 36.5 81 16 152/91 96 Nasal Cannula 4.0 06/26/16 19:31 36.8 80 18 126/80 98 Nasal Cannula 4.0 06/26/16 17:00 36.5 76 18 168/97 96 Nasal Cannula 4.0 06/26/16 15:49 36.6 73 18 163/88 98 Nasal Cannula 4.0 06/26/16 15:45 96 Nasal Cannula 4.0 06/26/16 15:45 36.5 80 12 144/84 96 Nasal Cannula 4.0 06/26/16 15:45 96 Nasal Cannula 4.0 06/26/16 15:13 36.6 74 12 165/94 99 Nasal Cannula 4.0 06/26/16 14:30 82 16 06/26/16 14:30 81 16 97 06/26/16 14:30 36.6 06/26/16 14:28 141/72 06/26/16 14:25 74 14 06/26/16 14:25 74 14 96 06/26/16 14:23 141/78 06/26/16 14:20 78 16 95 06/26/16 14:20 71 16 06/26/16 14:18 139/80 06/26/16 14:15 36.2 06/26/16 14:15 80 16 95 06/26/16 14:15 70 16 06/26/16 14:13 135/64 06/26/16 14:10 77 16 95 06/26/16 14:10 77 16 06/26/16 14:09 79 16 140/76 96 06/26/16 14:09 78 16 06/26/16 14:04 78 16 95 06/26/16 14:04 79 16 06/26/16 14:03 135/73 06/26/16 13:59 81 29 06/26/16 13:59 81 29 146/62 99 06/26/16 13:54 82 16 100 06/26/16 13:54 78 16 06/26/16 13:53 137/91 06/26/16 13:49 88 12 06/26/16 13:49 88 12 100 06/26/16 13:48 145/84 06/26/16 13:44 83 15 06/26/16 13:44 83 15 100 06/26/16 13:43 83 16 163/79 100 06/26/16 13:43 83 16 06/26/16 13:38 86 13 151/79 98 06/26/16 13:38 85 13 06/26/16 13:37 85 14 97 06/26/16 13:37 85 14 06/26/16 13:33 151/78 06/26/16 13:32 88 10 06/26/16 13:32 93 10 96 06/26/16 13:28 142/80 06/26/16 13:27 90 12 06/26/16 13:27 36.1 92 16 131/77 96 Mask 10 06/26/16 13:27 90 12 98 Physical Exam General Appearance: no apparent distress Respiratory/Chest: lungs clear, normal breath sounds, no respiratory distress, no accessory muscle use Cardiovascular: regular rate, rhythm, no edema, no murmur Abdomen: normal bowel sounds, non tender, soft Extremities: normal inspection, no pedal edema Laboratory Results Last 24 Hours Test 06/26/16 13:38 06/26/16 16:58 06/26/16 20:36 06/27/16 05:40 Bedside Glucose 127 mg/dl 141 mg/dl 167 mg/dl White Blood Count 7.92 K/uL Red Blood Count 3.54 M/uL Hemoglobin 10.1 g/dL Hematocrit 31.8 % Mean Corpuscular Volume 89.8 fL Mean Corpuscular Hemoglobin 28.5 pg Mean Corpuscular Hemoglobin Concent 31.8 g/dl Platelet Count 230 K/uL Mean Platelet Volume 9.0 fL Neutrophils (%) (Auto) 86.6 % Lymphocytes (%) (Auto) 9.8 % Monocytes (%) (Auto) 3.0 % Eosinophils (%) (Auto) 0.0 % Basophils (%) (Auto) 0.1 % Neutrophils # (Auto) 6.85 K/uL Lymphocytes # (Auto) 0.78 K/uL Monocytes # (Auto) 0.24 K/uL Eosinophils # (Auto) 0.00 K/uL Basophils # (Auto) 0.01 K/uL RDW Standard Deviation 47.8 fL RDW Coefficient of Variation 14.4 % Immature Granulocyte % (Auto) 0.5 % Immature Granulocyte # (Auto) 0.04 K/uL Sodium Level 142 mmol/L Potassium Level 4.2 mmol/L Chloride Level 103 mmol/L Carbon Dioxide Level 30 mmol/L Anion Gap 9.0 mmol/L Blood Urea Nitrogen 16 mg/dl Creatinine 0.83 mg/dl Est Creatinine Clear Calc Drug Dose 111.2 ml/min Estimated GFR () 90.1 Estimated GFR (Non- 77.7 BUN/Creatinine Ratio 18.7 Random Glucose 147 mg/dl Estimated Average Glucose 126 mg/dl Hemoglobin A1c 6.0 % Calcium Level 8.4 mg/dl Assessment and Plan This is a 56 year old male with PMH of DM2, HTN, COPD, diastolic CHF, hypothyroidism presents for a L4-L5 decompression/fusion L4-L5 Decompression/Fusion * POD #1 * pain controlled * doing well, H/H acceptable * hemodynamically stable * PT/OT * discharge planning DM2 * Ha1c = 6.0% * borderline DM2 * holding metformin for now * insulin sliding scale, restart oral agents on discharge HTN * blood pressure improved today * continue home medications * pain control Diastolic CHF * stop IVFs * good PO intake * home diuretic dose, monitor for overload COPD * stable, continue home inhalers Depression * stable, controlled * continue home meds Hypothyroidism * cont. synthroid Stress Incontinence * continue oxybutynin GERD * continue PPI DVT ppx * as per ortho FULL CODE likely d/c on Wednesday to home with home health
[2016-06-27] MEDS: OXYCODONE HCL IR 5 MG TAB (IMMEDIATE RELEASE) PO PRN (15:49)
[2016-06-27] MEDS: ARIPIprazole TAB 10 MG TAB PO SCH (21:37)
[2016-06-27] MEDS: TRAZODONE HCL 100 MG TAB PO SCH (21:38)
[2016-06-27] MEDS: GABAPENTIN 300 MG CAP PO SCH (21:38)
[2016-06-27] MEDS: SIMVASTATIN 40 MG TAB PO SCH (21:38)
[2016-06-27] MEDS: DOCUSATE SODIUM/SENNA 50/8.6MG TAB PO SCH (21:39)
[2016-06-27] MEDS: METOPROLOL SUCC 25MG EXT REL TAB PO SCH (21:40)
[2016-06-28 04:00] VITALS: O2SAT 94
[2016-06-28 06:04] LABS: HEMATOCRIT 30.6 % (37-47); MEAN CELL VOLUME 91.6 fL (80-100); MEAN CORPUSCULAR HEMOGLOBIN 28.4 pg (25-34); MEAN PLATELET VOLUME 9.1 fL (7.4-10.4); PLATELET COUNT 234 K/uL (130-400); RED BLOOD COUNT 3.34 M/uL (4.2-5.4); WHITE BLOOD COUNT 7.34 K/uL (4.8-10.8)
[2016-06-28] MEDS: POLYETHYLENE (MIRALAX) 17 GM PACK PO SCH ×4 (06:24→21:07)
[2016-06-28] MEDS: LEVOTHYROXINE 50 MCG TAB PO SCH (06:24)
[2016-06-28 06:38] LABS: BUN/CREATININE RATIO 21.7 (10-20); CALCIUM 8.3 mg/dl (8.5-10.1); CREATININE 1.1 mg/dl (0.60-1.20); POTASSIUM 4.2 mmol/L (3.5-5.1)
[2016-06-28] MEDS: GABAPENTIN 100 MG CAP PO SCH ×3 (09:00→18:32)
[2016-06-28] MEDS: LISINOPRIL 10 MG TAB PO SCH (09:00)
[2016-06-28] MEDS: FUROSEMIDE 40 MG TAB PO SCH (09:00)
[2016-06-28] MEDS: CLONAZEPAM 1 MG TAB PO SCH ×2 (09:00→21:08)
[2016-06-28] MEDS: INSULIN ASPART 100 UNITS/ML 3 ML PEN SC SCH ×4 (09:47→21:00)
[2016-06-28] MEDS: ASPIRIN 81 MG ECTAB PO SCH (09:48)
[2016-06-28] MEDS: POTASSIUM CHLORIDE 10 MEQ TABCR PO SCH (09:51)
[2016-06-28] MEDS: OXYBUTYNIN CHLORIDE 5 MG TAB PO SCH ×2 (09:52→21:07)
[2016-06-28 10:08] VITALS: BP 136/81; PULSE 72; TEMP 36.5; O2SAT 94
--- NOTE | 2016-06-28 11:28 | Pharmacy Progress Note ---
Glycemic: Assessment & Plan Date of Service Jun 28, 2016. Assessment & Plan * BSGs have been well-controlled during admission despite pt receiving high dose steroids and having minimal insulin requirements. BSGs ranging 99 - 179 mg /dl over the past 24hrs. * No basal insulin necessary. No changes to current inpatient regimen needed. * Restart oral DM agents on discharge. CONTINUE CURRENT INPATIENT GLYCEMIC REGIMEN: * Basal insulin: none * Correctional Insulin: Novolog Correction per scale ACHS Goal Range: Low 110 mg/dL - High 140 mg/dL Correction Factor: 30 mg/dL/unit * Prandial insulin: Per carb ratio of 1 unit per 10 grams CHO consumed BSGs continue to improve, no changes needed to inpatient regimen at this time. Pharmacy will continue to monitor patient daily and write orders per [facility] inpatient glycemic control protocol. Thanks. * Please note that the plan above was derived based on current level of insulin resistance and hospital stress. These recommendations are appropriate for inpatient admission only. Plan of care upon discharge will need to be reassessed to avoid potential outpatient hypo/hyperglycemia.
--- NOTE | 2016-06-28 11:39 | Progress Note ---
Subjective Date of Service: Jun 28, 2016. Subjective Pt evaluation today including: conversation w/ patient, physical exam, lab review, review of studies, review of inpatient medication list Saw/examined the patient in room 317 She is doing well today No pain; ambulating well Review of Systems Constitutional: No chills, No fever Respiratory: No shortness of breath Cardiac: No chest pain Abdomen: No constipation, No diarrhea, No nausea, No pain, No vomiting Musculoskeletal: + joint pain (controlled with meds) Female : No dysuria, No urinary frequency Medications Current Inpatient Medications Medications (Trade) Dose Ordered Sig/Dave Route Start Time Stop Time Status Last Admin Dose Admin Promethazine HCl/ Sodium Chloride (Phenergan Inj/ Nss 50ml) 50.5 ml @ 202 mls/hr Q6H PRN IV 06/26/16 12:45 07/26/16 12:44 Ondansetron HCl (Zofran Inj) 4 mg Q6H PRN IV 06/26/16 12:45 07/26/16 12:44 Metoclopramide HCl (Reglan Inj) 10 mg Q6H PRN IV 06/26/16 12:45 07/26/16 12:44 Pneumococcal Polysaccharide Vaccine 1 ea PRN PRN N/A 06/26/16 12:45 07/26/16 12:44 Influenza Virus Vacc Triv Types A&B 1 ea PRN PRN N/A 06/26/16 12:45 07/26/16 12:44 Polyethylene (Miralax Powder Packet) 17 gm Q6 PO 06/28/16 06:00 07/28/16 05:59 06/28/16 06:24 17 GM Bisacodyl (Dulcolax Supp) 10 mg DAILY PRN [place] 06/26/16 12:45 07/26/16 12:44 Magnesium Hydroxide (Milk Of Magnesia Susp) 30 ml DAILY PRN PO 06/26/16 12:45 07/26/16 12:44 Hydromorphone HCl (Dilaudid Inj) 0.5-1mg prn moder... Q3H PRN IV 06/27/16 06:00 07/11/16 05:59 Oxycodone HCl (Roxicodone Immediate Rel Tab) 5-10mg prn moderate to sev... Q4H PRN PO 06/27/16 06:00 07/11/16 05:59 06/27/16 15:49 5 MG Acetaminophen 1000 mg 1,000 mg Q8H PRN PO 06/26/16 12:45 07/26/16 12:44 Acetaminophen (Ofirmev Iv) 100 ml @ 400 mls/hr Q8H PRN IV 06/26/16 12:45 07/26/16 12:44 Naloxone HCl (Narcan Inj) 0.1 mg Q5M PRN IV 06/26/16 12:45 07/26/16 12:44 Senna/Docusate Sodium (Senokot S Tab) 2 tab HS PO 06/26/16 21:00 07/26/16 20:59 06/27/16 21:39 2 TAB Sodium Biphosphate/ Sodium Phosphate (Fleet Enema) 132 ml ONE PRN LA 06/26/16 12:45 07/26/16 12:44 Hydroxyzine HCl (Vistaril Tab) 25 mg Q8H PRN PO 06/26/16 12:45 07/26/16 12:44 Al Hydroxide/Mg Hydroxide (Maalox Susp) 30 ml Q6H PRN PO 06/26/16 12:45 07/26/16 12:44 Famotidine (Pepcid Tab) 20 mg Q12 PRN PO 06/26/16 12:45 07/26/16 12:44 Diphenhydramine HCl (Benadryl Cap) 25 mg Q6H PRN PO 06/26/16 12:45 07/26/16 12:44 Miscellaneous Information (Discontinue UNIVERSITY RELATIONS VICE PRESIDENT) 1 ea DIRECTED PRN N/A 06/27/16 06:00 07/27/16 05:59 Albuterol (Ventolin Hfa Inhaler) 2 puffs Q4H PRN INH 06/26/16 12:45 07/26/16 12:44 Aripiprazole (Abilify Tab) 20 mg HS PO 06/26/16 21:00 07/26/16 20:59 06/27/16 21:37 20 MG Aspirin (Ecotrin Tab) 81 mg QAM PO 06/27/16 09:00 07/27/16 08:59 06/28/16 09:48 81 MG Buspirone HCl (Buspar Tab) 5 mg TID PO 06/26/16 14:00 07/26/16 13:59 06/28/16 09:49 5 MG Clonazepam (Klonopin Tab) 1 mg BID PO 06/26/16 21:00 07/26/16 20:59 06/28/16 09:00 1 MG Furosemide (Lasix Tab) 40 mg QAM PO 06/27/16 09:00 07/27/16 08:59 06/27/16 08:48 40 MG Gabapentin (Neurontin Cap) 200 mg TID@0900,1300,1700 PO 06/26/16 17:00 07/26/16 16:59 06/28/16 09:00 200 MG Gabapentin (Neurontin Cap) 300 mg HS PO 06/26/16 21:00 07/26/16 20:59 06/27/16 21:38 300 MG Levothyroxine Sodium (Synthroid Tab) 50 mcg DAILYBB PO 06/27/16 06:00 07/27/16 05:59 06/28/16 06:24 50 MCG Lisinopril (Zestril Tab) 10 mg QAM PO 06/27/16 09:00 07/27/16 08:59 06/28/16 09:00 10 MG Metoprolol Succinate (Toprol Xl Tab) 75 mg HS PO 06/26/16 21:00 07/26/16 20:59 06/27/16 21:40 75 MG Oxybutynin Chloride (Ditropan Tab) 2.5 mg BID PO 06/26/16 21:00 07/26/16 20:59 06/28/16 09:52 2.5 MG Potassium Chloride (Klor-Con M10) 10 meq DAILY PO 06/27/16 09:00 07/27/16 08:59 06/28/16 09:51 10 MEQ Simvastatin (Zocor Tab) 40 mg QPM PO 06/26/16 21:00 07/26/16 20:59 06/27/16 21:38 40 MG Trazodone HCl (Desyrel Tab) 300 mg HS PO 06/26/16 21:00 07/26/16 20:59 06/27/16 21:38 300 MG Miscellaneous Information (Consult Glycemic Management Pharmacy) 1 ea UD PRN N/A 06/26/16 12:51 07/26/16 12:50 Insulin Aspart (novoLOG ASPART) SLIDING SCALE ACHS SC 06/26/16 16:00 07/26/16 15:59 06/28/16 09:47 5 UNITS Glucose (Glucose 40% Gel) 15-30 GRAMS 15 GRAMS... UD PRN PO 06/26/16 14:15 07/26/16 14:14 Glucose (Glucose Chew Tab) 4-8 Tablets 4 Tabl... UD PRN PO 06/26/16 14:15 07/26/16 14:14 Dextrose (Dextrose 50% 50ML Syringe) 25-50ML OF 50% DW IV FOR... UD PRN IV 06/26/16 14:15 07/26/16 14:14 Glucagon (Glucagon Inj) 1 mg UD PRN SQ 06/26/16 14:15 07/26/16 14:14 Objective Vital Signs Date Time Temp Pulse Resp B/P Pulse Ox O2 Delivery O2 Flow Rate FiO2 06/28/16 10:08 36.5 72 18 136/81 94 Room Air 06/27/16 23:30 Nasal Cannula 2.0 06/27/16 23:28 97 Nasal Cannula 2.0 06/27/16 23:25 37.0 73 16 108/68 87 Room Air 06/27/16 15:45 Room Air 06/27/16 15:30 36.7 66 18 116/72 90 Room Air Physical Exam General Appearance: no apparent distress Respiratory/Chest: lungs clear, normal breath sounds, no respiratory distress, no accessory muscle use Cardiovascular: regular rate, rhythm, no edema, no murmur Abdomen: normal bowel sounds, non tender, soft Extremities: normal inspection, no pedal edema Neurologic/Psychiatric: no motor/sensory deficits, alert, normal mood/affect Laboratory Results Last 24 Hours Test 06/27/16 21:05 06/28/16 05:15 06/28/16 07:41 Bedside Glucose 150 mg/dl 108 mg/dl White Blood Count 7.34 K/uL Red Blood Count 3.34 M/uL Hemoglobin 9.5 g/dL Hematocrit 30.6 % Mean Corpuscular Volume 91.6 fL Mean Corpuscular Hemoglobin 28.4 pg Mean Corpuscular Hemoglobin Concent 31.0 g/dl RDW Standard Deviation 49.3 fL RDW Coefficient of Variation 14.7 % Platelet Count 234 K/uL Mean Platelet Volume 9.1 fL Sodium Level 145 mmol/L Potassium Level 4.2 mmol/L Chloride Level 103 mmol/L Carbon Dioxide Level 35 mmol/L Anion Gap 7.0 mmol/L Blood Urea Nitrogen 24 mg/dl Creatinine 1.10 mg/dl Est Creatinine Clear Calc Drug Dose 83.9 ml/min Estimated GFR () 64.1 Estimated GFR (Non- 55.3 BUN/Creatinine Ratio 21.7 Random Glucose 99 mg/dl Calcium Level 8.3 mg/dl Assessment and Plan This is a 56 year old male with PMH of DM2, HTN, COPD, diastolic CHF, hypothyroidism presents for a L4-L5 decompression/fusion L4-L5 Decompression/Fusion 06/28 * POD #2 * doing well, pain controlled * cont. PT/OT * discharge planning home in AM 06/27 * POD #1 * pain controlled * doing well, H/H acceptable * hemodynamically stable * PT/OT * discharge planning Expected Blood Loss Anemia * Hgb down to < 10 * expected blood loss anemia * no symptoms * monitor DM2 * Ha1c = 6.0% * borderline DM2 * holding metformin for now * insulin sliding scale, restart oral agents on discharge HTN * blood pressure improved today * continue home medications * pain control Diastolic CHF * stop IVFs * good PO intake * home diuretic dose, monitor for overload COPD * stable, continue home inhalers Depression * stable, controlled * continue home meds Hypothyroidism * cont. synthroid Stress Incontinence * continue oxybutynin GERD * continue PPI DVT ppx * as per ortho FULL CODE likely d/c on Wednesday to home with home health
[2016-06-28] MEDS: OXYCODONE HCL IR 5 MG TAB (IMMEDIATE RELEASE) PO PRN (12:07)
--- NOTE | 2016-06-28 13:11 | PROGRESS NOTE ---
DATE: 06/28/2016 HISTORY OF PRESENT ILLNESS: Postop day 2. Back pain is controlled. Leg pain improved. Vital signs stable. T-max 36.5. XANDER drained 30 mL. Hematocrit stable at 30.6. PHYSICAL EXAMINATION: On exam, she has good strength to testing, appears comfortable. ASSESSMENT: Status post lumbar decompression and fusion. PLAN: At this time, maintain the XANDER drain another 24 hours. Anticipate discharge to home tomorrow. The patient understands and agrees.
[2016-06-28 15:15] VITALS: BP 131/77; PULSE 77; TEMP 36.9; O2SAT 90
[2016-06-28 16:00] VITALS: O2SAT 94
[2016-06-28] MEDS: SIMVASTATIN 40 MG TAB PO SCH (21:06)
[2016-06-28] MEDS: METOPROLOL SUCC 25MG EXT REL TAB PO SCH (21:06)
[2016-06-28] MEDS: DOCUSATE SODIUM/SENNA 50/8.6MG TAB PO SCH (21:07)
[2016-06-28] MEDS: TRAZODONE HCL 100 MG TAB PO SCH (21:07)
[2016-06-28] MEDS: GABAPENTIN 300 MG CAP PO SCH (21:07)
[2016-06-28] MEDS: ARIPIprazole TAB 10 MG TAB PO SCH (21:08)
[2016-06-28 23:06] VITALS: BP 115/83; PULSE 139; PULSE 140; TEMP 36.9; TEMP 37.2; O2SAT 95
[2016-06-28 23:25] VITALS: BP 115/83; PULSE 138; TEMP 37.2; O2SAT 97
[2016-06-29 05:29] LABS: MEAN CELL VOLUME 90.9 fL (80-100); MEAN CORPUSCULAR HEMOGLOBIN 28.2 pg (25-34); MEAN PLATELET VOLUME 8.9 fL (7.4-10.4); PLATELET COUNT 214 K/uL (130-400); RED BLOOD COUNT 3.41 M/uL (4.2-5.4); WHITE BLOOD COUNT 6.62 K/uL (4.8-10.8)
[2016-06-29] MEDS: LEVOTHYROXINE 50 MCG TAB PO SCH (05:47)
[2016-06-29] MEDS: POLYETHYLENE (MIRALAX) 17 GM PACK PO SCH (06:00)
[2016-06-29 06:03] LABS: BUN/CREATININE RATIO 21.5 (10-20); CALCIUM 8.2 mg/dl (8.5-10.1); CREATININE 1.1 mg/dl (0.60-1.20); POTASSIUM 4.1 mmol/L (3.5-5.1)
[2016-06-29 06:40] VITALS: BP 147/72; PULSE 72; TEMP 36.9; O2SAT 93
[2016-06-29] MEDS: CLONAZEPAM 1 MG TAB PO SCH (08:17)
[2016-06-29] MEDS: GABAPENTIN 100 MG CAP PO SCH (08:17)
[2016-06-29] MEDS: FUROSEMIDE 40 MG TAB PO SCH (08:18)
[2016-06-29] MEDS: OXYBUTYNIN CHLORIDE 5 MG TAB PO SCH (08:19)
[2016-06-29] MEDS: POTASSIUM CHLORIDE 10 MEQ TABCR PO SCH (08:19)
[2016-06-29] MEDS: ASPIRIN 81 MG ECTAB PO SCH (08:20)
[2016-06-29] MEDS: LISINOPRIL 10 MG TAB PO SCH (08:20)
[2016-06-29] MEDS: INSULIN ASPART 100 UNITS/ML 3 ML PEN SC SCH (08:25)
--- NOTE | 2016-06-29 08:28 | Anesthesiology Progress Note ---
Anesthesia Post Op Note Date & Time Jun 29, 2016 at 08:28 Vital Signs Vital Signs Past 12 Hours Date Time Temp Pulse Resp B/P Pulse Ox O2 Delivery O2 Flow Rate FiO2 06/29/16 07:35 Room Air 06/29/16 06:40 36.9 72 18 147/72 93 Room Air 06/28/16 23:25 37.2 138 18 115/83 97 Nasal Cannula 2.0 06/28/16 23:06 37.2 139 18 115/83 95 Nasal Cannula 2.0 06/28/16 20:52 Room Air Notes Mental Status: alert / awake / arousable, participated in evaluation Pt Amnestic to Procedure: Yes Nausea / Vomiting: adequately controlled Pain: adequately controlled Airway Patency, RR, SpO2: stable & adequate BP & HR: stable & adequate Hydration State: stable & adequate Anesthetic Complications: no major complications apparent
[2016-06-29] MEDS: OXYCODONE HCL IR 5 MG TAB (IMMEDIATE RELEASE) PO PRN (08:30)
[2016-06-29 09:38] VITALS: BP 147/72; PULSE 72; TEMP 36.9; O2SAT 93
--- NOTE | 2016-06-29 18:40 | DISCHARGE SUMMARY ---
PRINCIPAL DIAGNOSIS: Spinal stenosis. HOSPITAL COURSE FOLLOWS: On 06/26/2016 patient underwent lumbar decompression and fusion, tolerated this well and taken to the orthopedic floor postoperatively. Postop day #1, she was up and ambulatory, progressed nicely through postop day #2. Postop day #3, bowels were working well. Pain controlled. Subsequently discharged home. Discharge orders and instructions found on the chart for further review.
== END 2016-06-29 11:45 | disposition home or self-care (01) | DRG 460 ==
LOC: ENRESERVDT → ENRESERVTM → C.ACU 08:14 → C.3E 12:42
PROVIDERS: ADMIT Orthopaedic Surgery Orthopaedic Surgery of the Spine; ATTEND Orthopaedic Surgery Orthopaedic Surgery of the Spine
PROC: 0SG00AJ Fusion of Lumbar Vertebral Joint with Interbody Fusion Device, Posterior Approach, Anterior Column, Open Approach (ICD-10-PCS; principal; 2016-06-26 10:00)
PROC: 0ST20ZZ Resection of Lumbar Vertebral Disc, Open Approach (ICD-10-PCS; principal; 2016-06-26 10:00)
PROC: 3E0U0GB Introduction of Recombinant Bone Morphogenetic Protein into Joints, Open Approach (ICD-10-PCS; principal; 2016-06-26 10:00)
PROC: 01NB0ZZ Release Lumbar Nerve, Open Approach (ICD-10-PCS; principal; 2016-06-26 10:00)
PROC: 0SG0071 Fusion of Lumbar Vertebral Joint with Autologous Tissue Substitute, Posterior Approach, Posterior Column, Open Approach (ICD-10-PCS; principal; 2016-06-26 10:00)
DX: M48.06 Spinal stenosis, lumbar region (principal); Z68.42 Body mass index [BMI] 45.0-49.9, adult; I50.30 Unspecified diastolic (congestive) heart failure; D62 Acute posthemorrhagic anemia; M71.38 Other bursal cyst, other site; M89.38 Hypertrophy of bone, other site; J45.909 Unspecified asthma, uncomplicated; J44.9 Chronic obstructive pulmonary disease, unspecified; I11.0 Hypertensive heart disease with heart failure; E11.42 Type 2 diabetes mellitus with diabetic polyneuropathy; E78.00 Pure hypercholesterolemia, unspecified; E78.5 Hyperlipidemia, unspecified; E03.9 Hypothyroidism, unspecified; K21.9 Gastro-esophageal reflux disease without esophagitis; N39.3 Stress incontinence (female) (male); F10.20 Alcohol dependence, uncomplicated; M19.90 Unspecified osteoarthritis, unspecified site; F41.9 Anxiety disorder, unspecified; F32.9 Major depressive disorder, single episode, unspecified; F90.9 Attention-deficit hyperactivity disorder, unspecified type; E66.01 Morbid (severe) obesity due to excess calories; Z95.2 Presence of prosthetic heart valve; Z87.891 Personal history of nicotine dependence; Z96.653 Presence of artificial knee joint, bilateral; Z79.82 Long term (current) use of aspirin; Z79.1 Long term (current) use of non-steroidal anti-inflammatories (NSAID); Z79.84 Long term (current) use of oral hypoglycemic drugs; Z79.891 Long term (current) use of opiate analgesic; Z79.899 Other long term (current) drug therapy

== ENCOUNTER 2017-10-14 05:37 | Inpatient (IN) | payer OTHER ==
--- NOTE | 2017-10-13 22:19 | History and Physical ---
History & Physical Date October 13, 2017. Chief Complaint left knee pain History of Present Illness The patient is a 57 year old female with complaints of anterior left knee pain. She had a hx of a left TKA ~4 years ago. Nearly 6 wks ago, she sustained a fall and had anterior knee pain. She was noted to have a nondisplaced transverse patella fx and was treated conservatively. However, 1 week ago, the patient was ambulating without a knee immobilizer on and she sustained a fall onto the left knee. The patella fx has now become displaced and she is being set up for surgical fixation. Past Medical/Surgical History Medical Problems: (1) COPD (chronic obstructive pulmonary disease) (2) Depression (3) DM2 (diabetes mellitus, type 2) (4) GERD (gastroesophageal reflux disease) (5) HLD (hyperlipidemia) (6) HTN (hypertension) (7) Hypothyroidism (8) Lumbar stenosis with neurogenic claudication (9) Stress incontinence Surgical Problems: (1) H/O dilation and curettage (2) H/O tubal ligation (3) Hx of tonsillectomy (4) Hx of total knee arthroplasty (5) S/P AVR (6) S/P cholecystectomy Allergies Coded Allergies: Diazepam (Verified Allergy, Unknown, rash, 06/26/16) Penicillins (Verified Allergy, Unknown, RASH, FACIAL/EYES/THROAT SWELLING , 06/26/16) Bupropion (Verified Adverse Reaction, Unknown, emotionally disturbed, 06/26) Uncoded Nonscreenable Allergen (Verified Adverse Reaction, Unknown, TALCUM = LOCALIZAED RASH, 06/26/16) Home Medications Scheduled Albuterol Sulfate (Proair Hfa), 2 PUFFS PO PRN Aripiprazole (Abilify), 20 MG PO HS Aspirin (Aspirin Ec), 81 MG PO QAM Buspirone Hcl (Buspirone Hcl), 1 TAB PO TID Clonazepam (Klonopin), 1 MG PO BID Cyclobenzaprine Hcl (Flexeril), 10 MG PO TID Furosemide (Lasix), 40 MG PO QAM Gabapentin (Neurontin), 200 MG PO TID Gabapentin (Neurontin), 300 MG PO HS Levothyroxine Sodium (Levothyroxine Sodium), 1 TAB PO QAM Lisinopril (Zestril), 10 MG PO QAM Metformin Hcl (Glucophage *), 850 MG PO BID Metoprolol Succ (Toprol Xl) (Toprol-Xl), 75 MG PO HS Multiple Vitamin (Multivitamin), 1 TAB PO QAM Oxybutynin Chloride (Ditropan), 2.5 MG PO BID Potassium Chloride (Micro-K Ext Rel), 10 MEQ PO DAILY Rabeprazole Sodium (Aciphex), 20 MG PO QAM Sennosides-Docusate Sodium (Stool Softener), 1-2 TAB PO BID Simvastatin (Zocor), 40 MG PO QPM Trazodone Hcl (Trazodone), 300 MG PO HS Vortioxetine HBr (Trintellix), 30 MG PO QAM [Amphetamine Salts], 30 MG PO AM/NOON Scheduled PRN Oxycodone HCl (Oxycodone HCl), 5-10 MG PO Q4H PRN for Moderate - severe pain Physical Examination Skin: warm/dry, no rash Eyes: normal inspection ENT: normal ENT inspection Head: normocephalic, atraumatic Neck: supple, no adenopathy, trachea midline Respiratory/Chest: lungs clear Cardiovascular: regular rate, rhythm Abdomen / GI: normal bowel sounds, non tender Extremities: + pertinent finding (Left knee: Patient is NWB on the LLE. Tender at the anterior left knee. No ROM or strength testing performed. ) Neurologic/Psych: no motor/sensory deficits, alert, oriented x 3 Diagnosis Left patella fx s/p Left TKA ~4 years ago Plan of Treatment Recommend an ORIF left patella fx, revision patellar component of the left TKA, possible poly exchange left TKA. All potential risks, benefits, complications, alternatives, and rehab have been discussed with the patient and she wishes to proceed. She will be scheduled for 10.14.17 with ASA 81 mg BID x 30 days for DVT prophylaxis.
[2017-10-14] VITALS (11 sets, daily range): BP systolic 127–171; BP diastolic 65–89; PULSE 64–92; TEMP 36.6–37.1; O2SAT 91–94; Ht 172.7 cm; Wt 148.0 kg
[~2017-10-14] VITALS: Ht 172.7 cm; Wt 148.0 kg
[~2017-10-14 05:37] MED LIST changes: +DTR/5 PO; -KLOR CON PO; -LACTATED RINGER'S 1000ML 1,000 ML IV SCH; -MELO7.5T5 PO; -METO50TA7 PO; +METO50TA8 PO; -NAPROXEN PO; -OXYB5TAB74 PO; +POTA10CA28 PO; +RXC5 PO; -TRAM-10 PO
[2017-10-14] MEDS ORDERED: LACTATED RINGER'S 1000ML 500 ML IV SCH (06:00)
[2017-10-14] MEDS ORDERED: LACTATED RINGER'S 1000ML 1,000 ML IV SCH (06:00)
[2017-10-14] MEDS ORDERED: ROPIVACAINE 5MG/ML 30 ML 150 MG, BUPIVACAINE 0.5% MPF INJ 30 ML, EpINEphrine HCL INJ 0.... INFIL SCH ×8 (06:00)
[2017-10-14] MEDS ORDERED: LIDOCAINE HCL 2% 2 ML VIAL (20MG/ML) ONE (06:24)
[2017-10-14] MEDS ORDERED: MIDAZOLAM HCL 1 MG/ML 2ML VIAL ONE ×2 (06:25→08:35)
[2017-10-14] MEDS ORDERED: FENTANYL CITRATE INJ 50 MCG/1 ML 2 ML VIAL ONE (06:25)
[2017-10-14] MEDS ORDERED: PROPOFOL IV EMULSION 10 MG/ML 20 ML VIAL ONE ×5 (06:25→10:33)
[2017-10-14] MEDS ORDERED: SULF-302 PO (06:27)
[2017-10-14] MEDS ORDERED: DEXAMETHASONE SOD INJ 4 MG/ML VIAL ONE (06:31)
[2017-10-14] MEDS ORDERED: ONDANSETRON INJ 2 MG/ML 2 ML VIAL ONE ×2 (06:31)
[2017-10-14] MEDS ORDERED: BUPIVACAINE 0.5 % 5 MG/1 ML PF 10ML VIAL ONE (06:35)
[2017-10-14] MEDS ORDERED: ROPIVACAINE 0.5% 5 MG/ML 30 ML VIAL ONE (06:35)
[2017-10-14 06:36] LABS: INR 0.9 (0.9-1.1); PTT PATIENT 24.2 SECONDS (21.0-31.0)
[2017-10-14] MEDS ORDERED: BACITRACIN 50000 UNIT VIAL ONE (07:03)
[2017-10-14] MEDS ORDERED: POVIDONE-IODINE OP SOLN 30 ML BTL ONE (07:03)
[2017-10-14] MEDS ORDERED: NURSING VERBAL MED ORDER STA ×2 (07:19→07:49)
[2017-10-14] MEDS ORDERED: CLINDAMYCIN 600 MG/54 ML D5W IV ONE (07:21)
[2017-10-14] MEDS ORDERED: EpHEDrine SULFATE INJ 50 MG/ML AMP ONE (08:03)
[2017-10-14] MEDS: TRANEXAMIC ACID INJ 1,000 MG x 2 Bags IV SCH ×4 (08:14→10:23)
[2017-10-14] MEDS ORDERED: MEPERIDINE HCL 25 MG/ML CARP IV PRN (08:15)
[2017-10-14] MEDS ORDERED: HYDROmorphone INJ 0.5 MG/0.5 ML SYR IV PRN (08:15)
[2017-10-14] MEDS ORDERED: NALOXONE HCL 0.4 MG/1 ML VIAL/CARP IV PRN (08:15)
[2017-10-14] MEDS ORDERED: ONDANSETRON INJ 2 MG/ML 2 ML VIAL IV PRN ×2 (08:15→11:15)
[2017-10-14] MEDS ORDERED: EpHEDrine SULFATE INJ 50 MG/ML AMP IV PRN (08:15)
[2017-10-14] MEDS ORDERED: LABETALOL HCL IV 5 MG/ML 20ML IV PRN (08:15)
[2017-10-14] MEDS ORDERED: FENTANYL CITRATE INJ 50 MCG/1 ML 2 ML VIAL IV PRN (08:15)
[2017-10-14] MEDS ORDERED: PHENYLEPHRINE 100MCG/ML 5ML SYR IV PRN (08:15)
[2017-10-14] MEDS ORDERED: FLUMAZENIL 0.1 MG/1 ML 10 ML VIAL IV PRN (08:15)
[2017-10-14] MEDS ORDERED: ATROPINE SULFATE 0.1 MG/ML 5ML SYR IV PRN (08:15)
[2017-10-14] MEDS ORDERED: PHENYLEPHRINE HCL INJ 10 MG/ML VIAL ONE (09:18)
--- NOTE | 2017-10-14 10:52 | [facility] Post Operative Brief Note ---
Immediate Operative Summary Operative Date October 14, 2017. Pre-Operative Diagnosis Left displaced patella fracture status post left total knee arthroplasty 6 years ago; Morbid obesity Post-Operative Diagnosis Left displaced patella fracture status post left total knee arthroplasty 6 years ago; Morbid obesity Procedure(s) Performed 1. Left Knee Open Reduction Internal Fixation Patella 2. Enhanced difficulty due to patient size Surgeon Dr. Gustavo Callahan Croze Cutter Helper Surgeon(s) Raúl Glez PA-C Estimated Blood Loss 75ml Findings Consistent with Post-Op Diagnosis Specimens no specimens per surgeon Drains HV x 2 and Prevena drain Anesthesia Type MAC Spinal Regional Complication(s) none Disposition Accompanied Pt To Recover: no Disposition: Recovery Room / PACU
[2017-10-14] MEDS ORDERED: CEFAZOLIN IV 2,000 MG in DEXTROSE 5% 50ML 50 ML IV SCH (11:15)
[2017-10-14] MEDS ORDERED: ZOLPIDEM TARTRATE 5 MG TAB PO PRN (11:15)
[2017-10-14] MEDS ORDERED: MAGNESIUM HYDROXIDE SUSP 30 ML UDC PO PRN (11:15)
[2017-10-14] MEDS ORDERED: ALBUTEROL HFA 8 GM INHALER INH PRN (11:15)
[2017-10-14] MEDS ORDERED: MoRPHine SULFATE 4 MG/ML 1 ML CARP\\VIAL IV PRN (11:15)
[2017-10-14] MEDS ORDERED: BISACODYL 10 MG SUPP PR PRN (11:15)
[2017-10-14] MEDS ORDERED: NO NSAIDS SCH (11:15)
[2017-10-14] MEDS ORDERED: AMPHETAMINE SALTS PO SCH (11:15)
[2017-10-14] MEDS ORDERED: SOD PHOSPHATE/SOD BIPHOSPHATE ENEMA 132 ML BTL PR PRN (11:15)
[2017-10-14] MEDS ORDERED: ALUMINUM/MAGNESIUM/SIMETH (MAALOX MAX) 30 ML UDC PO PRN (11:15)
--- NOTE | 2017-10-14 11:31 | Discharge Instructions ---
Discharge Instructions Date of Service October 14, 2017. Admission Reason for Admission: Left Patella Fracture Discharge Discharge Diagnosis / Problem: left patella fracture Discharge Goals Goal(s): Decrease discomfort, Improve function Activity Recommendations Activity Limitations: per Instructions/Follow-up section Weightbearing Status: Left non-weightbearing (Must wear knee immobilizer at all times.) . Instructions / Follow-Up Instructions / Follow-Up ACTIVITY RECOMMENDATIONS: Limitations: No weight bearing to affected limb at all times. Must wear the knee immobilizer at all times. No range of motion of the left knee until told by Dr. Adorno's team. SPECIAL CARE INSTRUCTIONS: * Prevena- This is a large suction dressing covering your incision. This will help pull any excess drainage from the wound and allow your incision to heal properly. You may shower with this if you can keep the unit outside of the shower. If any bleeding or leakage is noted please call your doctor's office. This will remain on your incision for 7 days and then should be removed. This can be done yourself or by the home nursing staff if applicable. The entire unit is disposable once removed. Once removed, keep incision clean and dry. If redness or drainage is noted, please call your surgeon. * Some drainage onto the dressing is normal and is no cause for alarm. * Some swelling is natural especially after walking. * When resting, keep your foot elevated above the level of your heart. * Call [facility] if you notice: -Increased drainage -Fever over 101 degrees F -Severe constant pain BANDAGE: * Leave bandage/cast in place unless otherwise directed. * Keep bandage/cast dry at all times. FOLLOW UP VISIT WITH DR. ADORNO If appointment is not already scheduled: Please call [facility] after you get home today to schedule a follow-up appointment for [address] Adorno at . Current Hospital Diet Patient's current hospital diet: Regular Diet Discharge Diet Recommended Diet: Regular Diet Procedures Procedures Performed: 1. Left Knee Open Reduction Internal Fixation Patella 2. Enhanced difficulty due to patient size Pending Studies Studies pending at discharge: no Medical Emergencies . Who to Call and When: Medical Emergencies: If at any time you feel your situation is an emergency, please call 911 immediately. . Non-Emergent Contact Non-Emergency issues call your: Surgeon Call Non-Emergent contact if: temperature is above 101, your pain is not controlled, your pain is worsening, wound has increased drainage, wound has increased redness . "Provider Documentation" section prepared by Raúl Glez. .
--- NOTE | 2017-10-14 11:46 | DIAGNOSTIC IMAGING REPORT ---
L KNEE 1 OR 2 VIEWS ROUTINE CLINICAL HISTORY: post op joint replacement COMPARISON: None. DISCUSSION: Evidence for a total left knee replacement/revision. Good contact between prosthetic and underlying bone. Linear and fixation of a transverse fracture of the patella. Expected soft tissue edema IMPRESSION: Anatomic alignment posttotal left knee arthroplasty/revision. Linear pin traversing a transverse fracture of the mid patella. The above report was generated using voice recognition software. It may contain grammatical, syntax or spelling errors. Electronically signed by: Larry Farah M.D. 10/14/2017 11:44 AM Dictated Date/Time: 10/14/2017 11:43 AM
--- NOTE | 2017-10-14 11:48 | DIAGNOSTIC IMAGING REPORT ---
L KNEE 1 OR 2 VIEWS CLINICAL HISTORY: LEFT KNEE ORIF PATELLA arthroplasty COMPARISON: None. DISCUSSION: Image intensifier was used for a total left knee arthroplasty/revision. There is a linear pin traversing a fracture of the mid patella expected soft tissue postoperative change IMPRESSION: Image intensifier utilized for a total left knee arthroplasty/ReVision The above report was generated using voice recognition software. It may contain grammatical, syntax or spelling errors. Electronically signed by: Larry Farah M.D. 10/14/2017 11:46 AM Dictated Date/Time: 10/14/2017 11:46 AM
--- NOTE | 2017-10-14 12:14 | OPERATIVE REPORT ---
DATE OF OPERATION: 10/14/2017 PREOPERATIVE DIAGNOSES: 1. Left displaced patellar fracture 6 years status post total knee arthroplasty due to a fall. 2. Morbid obesity, BMI 49.6. POSTOPERATIVE DIAGNOSES: 1. Left displaced patellar fracture 6 years status post total knee arthroplasty due to a fall. 2. Morbid obesity, BMI 49.6. PROCEDURE: 1. Open reduction internal fixation, left patella using Synthes 4.0 cannulated screws x2 and a #5 Arthrex FiberTape [id number] repair. 2. Enhanced difficulty performing the surgical case due to the patient's enlarged body mass index. SURGEON: Gustavo Callahan DO DOCK CLERK: Raúl Glez PA-C who was present for patient positioning, sterile prep and drape, management of retractors and instruments. He was present through the critical portions of the case including wound closure, application of sterile dressing and transport of the patient to recovery. ANESTHESIA: Spinal monitored anesthesia care with adductor canal block. SPECIMENS: None. DRAINS: Hemovac x2 and Prevena drain superficially. COMPLICATIONS: None. BLOOD LOSS: 75 mL. PERTINENT HISTORY: This is a 57-year-old woman who had a total knee arthroplasty which was uncomplicated approximately 6 years prior. During that time, she had gained significant amount of weight and was having difficulty with ambulation. She had a fall approximately 5-6 weeks ago and had a nondisplaced transverse patellar fracture. She was placed in a knee immobilizer and was instructed to maintain weightbearing with a knee immobilizer and a walker. The patient was ambulating without the walker and without her knee brace and sustained a second fall, bruising, a 100% displaced transverse patellar fracture of the left lower extremity. The patient was then scheduled for surgical repair as indicated. All potential risks, benefits, complications, alternatives, rehab potential for incomplete relief of symptoms, need for further surgery, DVT, PE, , persistent pain, swelling, scarring, weakness, neurovascular injury, wound complications, hardware failure, nonunion, malunion, bone fracture were discussed with the patient. The patient then decided to proceed with procedure as indicated. DESCRIPTION OF PROCEDURE: In the preop holding area, the patient had an adductor canal block and a spinal anesthetic. She was then taken to the operative suite, placed supine on the operating table. I reviewed consent and identification of proper operative site. The patient was sedated. Next, a tourniquet was placed high on the left thigh over cast padding. Left lower extremity was then sterilely prepped and draped in usual fashion. All bony prominences were properly padded and protected. The left lower extremity was then sterilely prepped and draped in usual fashion, elevated, and exsanguinated with an Esmarch bandage. Tourniquet inflated to 300 mmHg. Next, a midline incision was made, centered over the patella with a 10 blade scalpel. The incision was deepened through subcutaneous tissue. Meticulous hemostasis was achieved with electrocautery. The anterior retinaculum was then incised and significant venous blood was then encountered. This was then suctioned. The patellar retinaculum and patellar extensor mechanism was completely torn and there is diastasis. The 2 halves of the patella were then carefully irrigated and debrided with a small curette until fresh bleeding bone could be visualized. Next, the retinaculum was then carefully debrided. The joint components were noted to be stable and intact. There is consideration for possible removal of the polyethylene of the patella; however, it was well fixed within the proximal pole of the fractured patella and this was tested for stability with a [place] elevator and was noted to be completely stable within the proximal half of the patella. The remaining cement adjacent to the inferior pole was then removed and the wound was copiously irrigated with pulsatile lavage with bacitracin until clear. Next, the 2.25 mm guide pins for the 4.0 cannulated screw set was then passed in a retrograde fashion out the distal aspect of the patella and then in antegrade fashion into the superior pole under live fluoroscopic assistance. This achieved a center-center position and then two 4.0 cannulated screws were then passed in a live fluoroscopic assistance to stabilize the patellar fracture fragments into near anatomic position in both AP and lateral projections. Next, a #5 Arthrex FiberTape was then passed through the screws in a [id number] fashion with fiber tapes on the anterior aspect of the patellar retinaculum. The suture was then tied and cut with the knot stack, left superiorly, so as not to produce any soft tissue impingement. Next, #5 FiberWire suture was then used to close the retinaculum with [id number] buried sutures both medial and lateral to the patella and then #2 FiberWire sutures were used to repair the extensor retinaculum and the vastus fascia, medial and lateral. Next, a dilute Betadine was then injected in and around the joint and joint component for approximately 3 minutes. This was suctioned dry and then Orthomix postop pain medication was injected in and around the joint capsule and in the superficial tissues. This was then followed by placement of two Hemovac drains exiting anterolaterally. Final radiographs were obtained noting near anatomic reduction and fixation of the left knee patellar fracture. Next, the dermis was closed using buried interrupted 2-0 Vicryl, skin was closed using skin yuliana and a Prevena drain was applied superficially. A sterile compressive dressing was applied and a knee immobilizer was applied. The tourniquet was released. The patient was awakened and taken to recovery in stable condition. I attest to the content of the Intraoperative Record and any orders documented therein. Any exception s are noted below.
[2017-10-14] MEDS: POTASSIUM CHLORIDE INJ 10 MEQ in SODIUM CHLORIDE 0.9% 1000ML 1,000 ML IV SCH ×2 (13:28→23:40)
[2017-10-14] MEDS: FERROUS GLUCONATE 324 MG TAB PO SCH ×2 (13:28→18:11)
[2017-10-14] MEDS ORDERED: CARBOHYDRATES FOR HYPOGLYCEMIA PO PRN (13:30)
[2017-10-14] MEDS ORDERED: DEXTROSE 50% 50 ML SYR IV PRN (13:30)
[2017-10-14] MEDS ORDERED: GLUCAGON FOR INJ 1 MG VIAL SQ PRN (13:30)
[2017-10-14] MEDS ORDERED: GLUCOSE 40% GEL 15 GM TUBE PO PRN (13:30)
[2017-10-14] MEDS ORDERED: GLUCOSE 10 TABS/TUBE PO PRN (13:30)
--- NOTE | 2017-10-14 13:49 | Anesthesiology Progress Note ---
Anesthesia Post Op Note Date & Time October 14, 2017 at 13:48 Vital Signs Pain Intensity: 0.0 Vital Signs Past 12 Hours Date Time Temp Pulse Resp B/P (MAP) Pulse Ox O2 Delivery O2 Flow Rate FiO2 10/14/17 13:30 76 171/89 (116) 91 Nasal Cannula 2.0 10/14/17 12:50 36.6 76 16 145/65 (91) 94 Nasal Cannula 2.0 10/14/17 12:25 92 Nasal Cannula 2.0 10/14/17 12:25 92 Nasal Cannula 2.0 10/14/17 12:25 36.9 64 16 127/71 (89) 92 Nasal Cannula 2.0 10/14/17 12:00 67 18 137/64 96 Nasal Cannula 2 10/14/17 11:50 36.2 64 15 122/61 94 Nasal Cannula 2 10/14/17 11:40 65 16 138/74 93 Nasal Cannula 2 10/14/17 11:30 66 15 124/62 93 Nasal Cannula 2 10/14/17 11:20 66 13 124/62 95 Nasal Cannula 2 10/14/17 11:10 36.5 69 20 125/49 96 Nasal Cannula 2 10/14/17 06:00 36.6 65 20 166/71 91 Room Air Notes Mental Status: alert / awake / arousable, participated in evaluation Pt Amnestic to Procedure: Yes Nausea / Vomiting: adequately controlled Pain: adequately controlled Airway Patency, RR, SpO2: stable & adequate BP & HR: stable & adequate Hydration State: stable & adequate Neuraxial Anesthesia: was administered, sensory block is resolving Anesthetic Complications: no major complications apparent
[2017-10-14 14:05] LABS: HEMATOCRIT 36.4 % (37-47); HEMOGLOBIN 11.1 g/dL (12.0-16.0); MEAN CELL VOLUME 85.4 fL (80-100); MEAN CORPUSCULAR HEMOGLOBIN 26.1 pg (25-34); MEAN PLATELET VOLUME 9.3 fL (7.4-10.4); NUCLEATED RED BLOOD CELL ABS 0.04 K/uL (0-0); PLATELET COUNT 248 K/uL (130-400); RED CELL DISTRIBUTION WIDTH CV 19.9 % (11.5-14.5); RED CELL DISTRIBUTION WIDTH SD 62.3 fL (36.4-46.3); WHITE BLOOD COUNT 7.31 K/uL (4.8-10.8)
[2017-10-14] MEDS ORDERED: ABL/5 PO (14:05)
[2017-10-14] MEDS ORDERED: ALBINS INH (14:05)
[2017-10-14] MEDS ORDERED: ARIP20TA4 PO (14:05)
[2017-10-14] MEDS ORDERED: AMPH30TA2 PO (14:05)
[2017-10-14 14:10] LABS: MEAN CORPUSCULAR HGB CONC 30.5 g/dl (32-36)
[2017-10-14] MEDS: ACETAMINOPHEN 500 MG TAB PO SCH ×2 (14:13→21:13)
[2017-10-14] MEDS: OXYCODONE HCL IR 5 MG TAB (IMMEDIATE RELEASE) PO PRN ×2 (14:13→19:23)
[2017-10-14] MEDS ORDERED: ALBUTEROL 0.083% NEBU SOLN 3 ML VIAL INH PRN (14:15)
[2017-10-14] MEDS ORDERED: SYMIN160 INH (14:17)
[2017-10-14] MEDS ORDERED: LISI-461 PO (14:17)
[2017-10-14] MEDS ORDERED: VORT1TAB3 PO (14:17)
[2017-10-14] MEDS ORDERED: DSY/150 PO (14:17)
[2017-10-14] MEDS ORDERED: UMEC1INH INH (14:17)
[2017-10-14] MEDS ORDERED: METO50TA8 PO (14:17)
[2017-10-14] MEDS ORDERED: FURO40TA3 PO (14:17)
--- NOTE | 2017-10-14 15:04 | Medical Consult ---
Consultation Date of Consultation: October 14, 2017. Attending Physician: Gustavo Callahan D.O. Reason for Consultation: Medical management History of Present Illness Pt is 57 y/o F with PMH COPD, DM II, pulmonary hypertension, HTN, HLD, depression, s/p aortic valve replacement, hypothyroidism, chronic diastolic heart failure, obesity seen in medical consultation after L knee open reduction and internal fixation patella today by Dr Callahan. Pt has urinated since surgery. Reports moderate pain to L knee since ambulation to bedside toilet. Denies paresthesias to extremity. Last BM yesterday. Denies nausea or vomiting and ate her lunch without difficulty. Pt reports uses her albuterol TID on regular basis. Being treated for UTI, dx a couple of days ago, however pt just started Bactrim yesterday. Has taken 3 of 6 doses. Denies any SOB at this time. Denies fever/chills, diaphoresis, VITAL, dizziness, syncope, vision changes, neck pain, CP, orthopnea, palpitations, cough, sore throat, choking, otalgia, rhinorrhea, abdominal pain, rashes. Past Medical/Surgical History Medical Problems: (1) COPD (chronic obstructive pulmonary disease) Status: Chronic (2) Depression Status: Chronic (3) DM2 (diabetes mellitus, type 2) Status: Chronic (4) GERD (gastroesophageal reflux disease) Status: Chronic (5) HLD (hyperlipidemia) Status: Chronic (6) HTN (hypertension) Status: Chronic (7) Hypothyroidism Status: Chronic (8) Stress incontinence Status: Chronic Surgical Problems: (1) H/O dilation and curettage Status: Chronic (2) H/O tubal ligation Status: Chronic (3) Hx of left knee surgery Permanent Comment: 10/14/17 - L knee open reduction, internal fixation patella - [facility] - Dr Callahan Status: Resolved (4) Hx of tonsillectomy Status: Chronic (5) Hx of total knee arthroplasty Status: Chronic (6) S/P AVR Status: Chronic (7) S/P cholecystectomy Status: Chronic Family History Diabetes mellitus FH: cancer FH: heart disease Hypertension Social History Smoking Status: Former Smoker Smokeless Tobacco Use: No Alcohol Use: none Drug Use: none Marital Status: single Allergies Coded Allergies: Diazepam (Verified Allergy, Unknown, rash, 10/14/17) Penicillins (Verified Allergy, Unknown, RASH, FACIAL/EYES/THROAT SWELLING , 10/14/17) 10/14/17: Patient has been on cephalosporins in the past - no reaction Bupropion (Verified Adverse Reaction, Unknown, emotionally disturbed, 10/14) Uncoded Nonscreenable Allergen (Verified Adverse Reaction, Unknown, TALCUM = LOCALIZAED RASH, 10/14/17) Current Inpatient Medications Current Inpatient Medications Medications (Trade) Dose Ordered Sig/Dave Route Start Time Stop Time Status Last Admin Dose Admin Lactated Ringer's 1,000 ml @ 15 mls/hr Q24H IV 10/14/17 06:00 10/15/17 05:59 Potassium Chloride 10 meq/ Sodium Chloride 1,005 ml @ 100 mls/hr Q10H3M IV 10/14/17 13:00 11/13/17 12:59 10/14/17 13:28 100 MLS/HR Miscellaneous Medication (No Nsaids) 1 ea UD N/A 10/14/17 11:15 11/13/17 11:14 Oxycodone HCl (Roxicodone Immediate Rel Tab) 1-2 TABS FOR PAIN 1 TABLET ... Q4H PRN PO 10/14/17 11:15 10/28/17 11:14 10/14/17 14:13 10 MG Morphine Sulfate (MoRPHine SULFATE INJ) 2 mg Q2HWA PRN IV 10/14/17 11:15 10/28/17 11:14 Acetaminophen (Tylenol Tab) 1,000 mg Q8H PO 10/14/17 14:00 11/13/17 13:59 10/14/17 14:13 1,000 MG Magnesium Hydroxide (Milk Of Magnesia Susp) 30 ml Q6H PRN PO 10/14/17 11:15 11/13/17 11:14 Bisacodyl (Dulcolax Supp) 10 mg DAILY PRN DC 10/14/17 11:15 11/13/17 11:14 Sodium Biphosphate/ Sodium Phosphate (Fleet Enema) 132 ml DAILY PRN DC 10/14/17 11:15 11/13/17 11:14 Senna (Senokot Tab) 17.2 mg HS PO 10/14/17 21:00 11/13/17 20:59 Docusate Sodium (coLACE CAP) 100 mg BID PO 10/14/17 21:00 11/13/17 20:59 Diphenhydramine HCl (Benadryl Cap) 25 mg Q8H PRN PO 10/14/17 11:15 11/13/17 11:14 Al Hydrox/Mg Hydrox/Simethicone (Maalox Max Susp) 15 ml Q4H PRN PO 10/14/17 11:15 11/13/17 11:14 Zolpidem Tartrate (Ambien Tab) 5 mg HSZ PRN PO 10/14/17 11:15 11/13/17 11:14 Ondansetron HCl (Zofran Inj) 4 mg Q6H PRN IV 10/14/17 11:15 11/13/17 11:14 Ferrous Gluconate (Ferrous Gluconate Tab) 324 mg TIDM PO 10/14/17 13:00 11/13/17 12:59 10/14/17 13:28 324 MG Cefazolin Sodium 2000 mg/Dextrose 65 ml @ 100 mls/hr Q8H IV 10/14/17 11:15 10/14/17 19:53 UNV Levothyroxine Sodium (Synthroid Tab) 50 mcg DAILYBB PO 10/15/17 06:00 11/14/17 05:59 Multivitamins (Multivitamin Tab) 1 tab QAM PO 10/15/17 09:00 11/14/17 08:59 Oxybutynin Chloride (Ditropan Tab) 2.5 mg BID PO 10/14/17 21:00 11/13/17 20:59 Potassium Chloride (Klor-Con M10) 10 meq DAILY PO 10/15/17 09:00 11/14/17 08:59 Simvastatin (Zocor Tab) 40 mg QPM PO 10/14/17 21:00 11/13/17 20:59 Pantoprazole Sodium (Protonix Tab) 40 mg QAM PO 10/15/17 09:00 11/14/17 08:59 Miscellaneous Information (Order Awaiting Action) 1 ea QS N/A 10/14/17 16:00 11/13/17 15:59 Aspirin (Ecotrin Tab) 81 mg BID PO 10/14/17 21:00 11/13/17 20:59 Insulin Glargine (Lantus Solostar Pen) 10 units Q12 SC 10/14/17 21:00 11/13/17 20:59 Insulin Aspart (novoLOG ASPART) SLIDING SCALE If C... ACHS SC 10/14/17 17:15 11/13/17 17:14 Glucose (Glucose 40% Gel) 15-30 GRAMS 15 GRAMS... UD PRN PO 10/14/17 13:30 11/13/17 13:29 Glucose (Glucose Chew Tab) 4-8 Tablets 4 Tabl... UD PRN PO 10/14/17 13:30 11/13/17 13:29 Dextrose (Dextrose 50% 50ML Syringe) 25-50ML 25ML FOR ... UD PRN IV 10/14/17 13:30 11/13/17 13:29 Glucagon (Glucagon Inj) 1 mg UD PRN SQ 10/14/17 13:30 11/13/17 13:29 Carbohydrates (Carbohydrates For Hypoglycemia) 15-30 GRAMS 15 grams if BSG 54-69... UD PRN PO 10/14/17 13:30 11/13/17 13:29 Albuterol Sulfate (Ventolin 0.083% 2.5MG/3ML Neb) 2.5 mg Q8R INH 10/14/17 16:00 11/13/17 15:59 Albuterol Sulfate (Ventolin 0.083% 2.5MG/3ML Neb) 2.5 mg Q4H PRN INH 10/14/17 14:15 11/13/17 14:14 Trimethoprim/ Sulfamethoxazole (Septra Ds 800/ 160MG Tab) 1 tab BID PO 10/14/17 21:00 10/15/17 21:00 UNV Review of Systems See HPI for pertinent positives & negatives. All other systems reviewed and were otherwise negative Physical Exam Date Time Temp Pulse Resp B/P (MAP) Pulse Ox O2 Delivery O2 Flow Rate FiO2 10/14/17 13:30 76 171/89 (116) 91 Nasal Cannula 2.0 10/14/17 12:50 36.6 76 16 145/65 (91) 94 Nasal Cannula 2.0 10/14/17 12:25 92 Nasal Cannula 2.0 10/14/17 12:25 92 Nasal Cannula 2.0 10/14/17 12:25 36.9 64 16 127/71 (89) 92 Nasal Cannula 2.0 10/14/17 12:00 67 18 137/64 96 Nasal Cannula 2 10/14/17 11:50 36.2 64 15 122/61 94 Nasal Cannula 2 10/14/17 11:40 65 16 138/74 93 Nasal Cannula 2 10/14/17 11:30 66 15 124/62 93 Nasal Cannula 2 10/14/17 11:20 66 13 124/62 95 Nasal Cannula 2 10/14/17 11:10 36.5 69 20 125/49 96 Nasal Cannula 2 10/14/17 06:00 36.6 65 20 166/71 91 Room Air General Appearance: no apparent distress, + obese Head: normocephalic, atraumatic Eyes: normal inspection, sclerae normal ENT: hearing grossly normal, pharynx normal, + pertinent finding (mucous membranes moist) Neck: supple, trachea midline Respiratory/Chest: lungs clear, normal breath sounds, no respiratory distress Cardiovascular: regular rate, rhythm, normal peripheral pulses Abdomen/GI: normal bowel sounds, non tender, soft Extremities/Musculoskelatal: + pertinent finding (L knee with surgical dressing in place, drain with small amount of blood. bilateral pedal pushes/ pulls intact with sensation to light touch intact, brisk capillary refill, distal pulses intact) Neurologic/Psych: alert, normal mood/affect, oriented x 3 Skin: normal color, warm/dry Laboratory Results Last 24 Hours Test 10/14/17 05:56 10/14/17 05:59 10/14/17 13:40 Bedside Glucose 115 mg/dl Prothrombin Time 9.8 SECONDS Prothromb Time International Ratio 0.9 Activated Partial Thromboplast Time 24.2 SECONDS Partial Thromboplastin Ratio 0.9 White Blood Count 7.31 K/uL Red Blood Count 4.26 M/uL Hemoglobin 11.1 g/dL Hematocrit 36.4 % Mean Corpuscular Volume 85.4 fL Mean Corpuscular Hemoglobin 26.1 pg Mean Corpuscular Hemoglobin Concent 30.5 g/dl RDW Standard Deviation 62.3 fL RDW Coefficient of Variation 19.9 % Platelet Count 248 K/uL Mean Platelet Volume 9.3 fL Nucleated RBC Absolute Count (auto) 0.04 K/uL Nucleated Red Blood Cells % 0.5 % Assessment & Plan Pt post op day# 0 S/P L knee open reduction & internal fixation patella by Dr Callahan -pain management per ortho -wound management per ortho -PT/OT as appropriate -DVT prophylaxis per ortho -incentive spirometry -monitor H&H for acute blood loss anemia DM II HA1c added -Hold metformin -DM diet -Basal bolus insulin per protocol CHRONIC DIASTOLIC HEART FAILURE No CP/SOB, no rales. Cr: 1.27 (baseline ~ 1.1). Will hold lasix now and repeat prp in am HTN -Continue lisinopril, metoprolol. If worsening kidney function in am to hold lisinopril COPD No CP/SOB, no rales/wheezing/rhonchi -Continue albuterol nebulizer as needed -Continue home inhalers -Continue oxygen 2L NC at bedtime HYPOTHYROIDISM TSH added -Continue levothyroxine HLD -Continue statin DEPRESSION -Continue home meds GERD -Continue PPI STRESS INCONTINENCE -Continue oxybutynin DVT Prophylaxis -per ortho Disposition admitted med-surg Full code Follows with Dr Robles for routine care Pt was seen with Dr Mackay. See addendum Pt will be followed remaining hospital course by Dr Jimenez ATTENDING ADDENDUM: Patient seen and examined care coordinated with Alma Delia Grimaldo PA-C This is a 57-year-old female with a history of patellar fracture secondary to fall Underwent ORIF by Dr. Callahan today Patient denies of any chest pain shortness of breath or fever Complains of pain on the left knee postsurgical site Getting relief with current pain medication regimen Type 2 diabetes Hold metformin Insulin sliding scale BSG before meals and at bedtime Please refer to further documentation by Alma Delia Grimaldo PA-C for discussion of other chronic issues Krysten Mackay MD Additional Copies To Unique Robles D.O.
[2017-10-14 15:07] LABS: ALBUMIN 3.2 gm/dl (3.4-5.0); CALCIUM 8.2 mg/dl (8.5-10.1); CREATININE 1.27 mg/dl (0.60-1.20); POTASSIUM 4.7 mmol/L (3.5-5.1)
[2017-10-14 15:11] LABS: TOTAL PROTEIN 6.9 gm/dl (6.4-8.2)
[2017-10-14] MEDS: ALBUTEROL 0.083% NEBU SOLN 3 ML VIAL INH SCH ×2 (15:21→23:24)
[2017-10-14] MEDS: CEFAZOLIN IV 2,000 MG in SYRINGE 0 ML IV SCH ×2 (16:45→23:41)
[2017-10-14] MEDS: INSULIN ASPART 100 UNITS/ML 3 ML PEN SC SCH ×2 (18:14→21:09)
[2017-10-14] MEDS ORDERED: TRAZODONE HCL 100 MG TAB PO SCH (21:00)
[2017-10-14] MEDS ORDERED: ARIPIprazole TAB 5 MG TAB PO SCH (21:00)
[2017-10-14] MEDS ORDERED: METOPROLOL SUCC 50MG EXT REL TAB PO SCH (21:00)
[2017-10-14] MEDS ORDERED: CLONAZEPAM 1 MG TAB PO SCH (21:00)
[2017-10-14] MEDS ORDERED: FUROSEMIDE 40 MG TAB PO SCH (21:00)
[2017-10-14] MEDS ORDERED: ARIPIprazole TAB 10 MG TAB PO SCH ×2 (21:00)
[2017-10-14] MEDS ORDERED: METFORMIN HCL 850 MG TAB PO SCH (21:00)
[2017-10-14] MEDS ORDERED: SULFAMETHOXAZOLE/TRIMETHOPRIM DS 800/160MG TAB PO SCH (21:00)
[2017-10-14] MEDS: INSULIN GLARGINE SOLOSTAR 100 UNITS/ML 3 ML PEN SC SCH (21:08)
[2017-10-14] MEDS: TRAZODONE HCL 100 MG TAB PO SCH (21:10)
[2017-10-14] MEDS: SIMVASTATIN 40 MG TAB PO SCH (21:10)
[2017-10-14] MEDS: ASPIRIN 81 MG ECTAB PO SCH (21:10)
[2017-10-14] MEDS: SULFAMETHOXAZOLE/TRIMETHOPRIM DS 800/160MG TAB PO SCH (21:10)
[2017-10-14] MEDS: METOPROLOL SUCC 50MG EXT REL TAB PO SCH (21:10)
[2017-10-14] MEDS: LISINOPRIL 10 MG TAB PO SCH (21:11)
[2017-10-14] MEDS: ARIPIprazole TAB 10 MG TAB PO SCH (21:11)
[2017-10-14] MEDS: SENNA 8.6 MG TAB PO SCH (21:11)
[2017-10-14] MEDS: OXYBUTYNIN CHLORIDE 5 MG TAB PO SCH (21:11)
[2017-10-14] MEDS: DOCUSATE SODIUM 100 MG CAP PO SCH (21:12)
[2017-10-15] VITALS (8 sets, daily range): BP systolic 109–153; BP diastolic 69–84; PULSE 64–80; TEMP 36.6–37; O2SAT 90–98
[2017-10-15] MEDS: OXYCODONE HCL IR 5 MG TAB (IMMEDIATE RELEASE) PO PRN ×5 (03:07→21:35)
[2017-10-15] MEDS: LEVOTHYROXINE 50 MCG TAB PO SCH (05:37)
[2017-10-15] MEDS: ACETAMINOPHEN 500 MG TAB PO SCH ×3 (05:38→21:25)
[2017-10-15 06:27] LABS: HEMATOCRIT 32.7 % (37-47); HEMOGLOBIN 9.9 g/dL (12.0-16.0); MEAN CELL VOLUME 85.4 fL (80-100); MEAN CORPUSCULAR HEMOGLOBIN 25.8 pg (25-34); MEAN CORPUSCULAR HGB CONC 30.3 g/dl (32-36); MEAN PLATELET VOLUME 8.9 fL (7.4-10.4); NUCLEATED RED BLOOD CELL ABS 0.02 K/uL (0-0); PLATELET COUNT 249 K/uL (130-400); RED CELL DISTRIBUTION WIDTH CV 20.2 % (11.5-14.5); RED CELL DISTRIBUTION WIDTH SD 62.5 fL (36.4-46.3)
--- NOTE | 2017-10-15 06:38 | Orthopedic Progress Note ---
Orthopedic Progress Note Date of Service October 15, 2017. Subjective Post OP Day: 1 Reports: feeling well, complaints (pain off and on), Denies: chest pain, SOB, nausea / vomiting, light headedness, calf pain Objective calves soft nontender, N/V intact, dressing C/D/I, A&O x3, toes mobile, hemovac drainage (50ml) Date Time Temp Pulse Resp B/P (MAP) Pulse Ox O2 Delivery O2 Flow Rate FiO2 10/15/17 03:05 36.8 74 17 109/69 (82) 92 Nasal Cannula 3.0 10/14/17 23:25 84 16 94 Nasal Cannula 3.0 10/14/17 23:08 36.9 79 15 152/75 (100) 94 Nasal Cannula 3.0 10/14/17 19:36 36.8 79 17 144/74 (97) 92 Nasal Cannula 3.0 10/14/17 19:15 Nasal Cannula 2.5 10/14/17 15:44 37.1 80 18 147/75 (99) 91 Nasal Cannula 2.5 10/14/17 15:22 92 16 94 Room Air 10/14/17 15:00 94 Room Air 10/14/17 14:24 77 16 144/84 (104) 94 2.0 10/14/17 13:30 76 171/89 (116) 91 Nasal Cannula 2.0 10/14/17 12:50 36.6 76 16 145/65 (91) 94 Nasal Cannula 2.0 10/14/17 12:25 92 Nasal Cannula 2.0 10/14/17 12:25 92 Nasal Cannula 2.0 10/14/17 12:25 36.9 64 16 127/71 (89) 92 Nasal Cannula 2.0 10/14/17 12:00 67 18 137/64 96 Nasal Cannula 2 10/14/17 11:50 36.2 64 15 122/61 94 Nasal Cannula 2 10/14/17 11:40 65 16 138/74 93 Nasal Cannula 2 10/14/17 11:30 66 15 124/62 93 Nasal Cannula 2 10/14/17 11:20 66 13 124/62 95 Nasal Cannula 2 10/14/17 11:10 36.5 69 20 125/49 96 Nasal Cannula 2 Laboratory Results 24 Hours: Test 10/14/17 13:40 10/15/17 05:11 Hematocrit 36.4 % 32.7 % Hemoglobin 11.1 g/dL 9.9 g/dL Assessment & Plan Assessment: POD 1 s/pr ORIF Left Patella Plan: PT/OT Planning to go home on dc. CM to check on needs. Inhouse Planning Pain Management: Morphine, Oxy IR DVT Prophylaxis: TEDs, SCDs, ASA Discharge Planning Discharge Planning: uncertain
[2017-10-15] MEDS ORDERED: MoRPHine SULFATE 4 MG/ML 1 ML CARP\\VIAL IV PRN (06:45)
[2017-10-15 07:07] LABS: CALCIUM 7.8 mg/dl (8.5-10.1); CREATININE 1.15 mg/dl (0.60-1.20); POTASSIUM 4.8 mmol/L (3.5-5.1)
[2017-10-15] MEDS: ALBUTEROL 0.083% NEBU SOLN 3 ML VIAL INH SCH ×3 (07:08→23:11)
[2017-10-15 07:24] LABS: HEMOGLOBIN A1C 6.3 % (4.5-5.6)
--- NOTE | 2017-10-15 07:38 | Anesthesiology Progress Note ---
Anesthesia Post Op Note Date & Time October 15, 2017 at 07:37 Vital Signs Pain Intensity: 7.0 Vital Signs Past 12 Hours Date Time Temp Pulse Resp B/P (MAP) Pulse Ox O2 Delivery O2 Flow Rate FiO2 10/15/17 07:09 65 16 96 Nasal Cannula 3.0 10/15/17 06:56 36.7 64 16 121/74 (90) 96 3.0 10/15/17 03:05 36.8 74 17 109/69 (82) 92 Nasal Cannula 3.0 10/14/17 23:25 84 16 94 Nasal Cannula 3.0 10/14/17 23:08 36.9 79 15 152/75 (100) 94 Nasal Cannula 3.0 Notes Mental Status: alert / awake / arousable, participated in evaluation Pt Amnestic to Procedure: Yes Nausea / Vomiting: adequately controlled Pain: adequately controlled Airway Patency, RR, SpO2: stable & adequate BP & HR: stable & adequate Hydration State: stable & adequate Neuraxial Anesthesia: sensory block resolved Anesthetic Complications: no major complications apparent
[2017-10-15] MEDS ORDERED: AMPHETAMINE ASP/SULF/DEXTRAMPH 20 MG TAB PO SCH (08:00)
[2017-10-15] MEDS: ASPIRIN 81 MG ECTAB PO SCH ×2 (08:20→21:25)
[2017-10-15] MEDS: AMPHETAMINE ASP/SULF/DEXTRAMPH 10 MG TAB PO SCH ×2 (08:20→12:19)
[2017-10-15] MEDS: POTASSIUM CHLORIDE 10 MEQ TABCR PO SCH (08:21)
[2017-10-15] MEDS: METOPROLOL SUCC 50MG EXT REL TAB PO SCH ×2 (08:21→21:28)
[2017-10-15] MEDS: PANTOprazole SOD 40 MG TAB PO SCH (08:21)
[2017-10-15] MEDS: SULFAMETHOXAZOLE/TRIMETHOPRIM DS 800/160MG TAB PO SCH ×2 (08:21→21:26)
[2017-10-15] MEDS: MULTIVITAMIN TAB PO SCH (08:21)
[2017-10-15] MEDS: OXYBUTYNIN CHLORIDE 5 MG TAB PO SCH ×2 (08:22→21:28)
[2017-10-15] MEDS: LISINOPRIL 10 MG TAB PO SCH ×2 (08:22→21:27)
[2017-10-15] MEDS: FERROUS GLUCONATE 324 MG TAB PO SCH ×3 (08:22→18:08)
[2017-10-15] MEDS: DOCUSATE SODIUM 100 MG CAP PO SCH ×2 (08:22→21:29)
[2017-10-15] MEDS: INSULIN ASPART 100 UNITS/ML 3 ML PEN SC SCH ×4 (08:29→21:00)
[2017-10-15] MEDS: INSULIN GLARGINE SOLOSTAR 100 UNITS/ML 3 ML PEN SC SCH ×2 (08:30→21:34)
[2017-10-15] MEDS ORDERED: VORTIOXETINE HBR PO SCH (09:00)
[2017-10-15] MEDS ORDERED: MULTIVITAMIN TAB PO SCH (09:00)
[2017-10-15] MEDS ORDERED: FUROSEMIDE 40 MG TAB PO SCH (09:00)
[2017-10-15] MEDS ORDERED: LISINOPRIL 10 MG TAB PO SCH (09:00)
[2017-10-15] MEDS: POTASSIUM CHLORIDE INJ 10 MEQ in SODIUM CHLORIDE 0.9% 1000ML 1,000 ML IV SCH ×2 (09:37→18:54)
[2017-10-15] MEDS ORDERED: AMPHETAMINE ASP/SULF/DEXTRAMPH 10 MG TAB PO SCH (12:00)
[2017-10-15] MEDS ORDERED: NURSING VERBAL MED ORDER ONE (18:45)
--- NOTE | 2017-10-15 19:17 | Progress Note ---
Internal Med Progress Note Date of Service: October 15, 2017. Provider Documentation: SUBJECTIVE: Seen and examined at bedside LLE pain is controlled +flatus, No BM yet Denies chest pain, SOB, dizziness, abd pain No other complaints OBJECTIVE: Vital Signs-as noted below Physical Exam: Vitals signs as noted above General Appearance:Obese, no apparent distress Head: normocephalic, Atraumatic Eyes: normal inspection, EOMI, PERRL Neck: supple, Trachea midline Respiratory/Chest: Normal breath sounds, CTA Cardiovascular: S1, S2, No murmur Abdomen/GI:Soft, Non tender, Bowel sounds present Extremities/Musculoskelatal:normal inspection, LLE in Surgical dressing Neurologic/Psych:AAOX3, grossly no focal neurological deficits Skin: normal color, warm Lab data as noted below. ASSESSMENT & PLAN: S/P ORIF L Patella POD # 1 pain is controlled wound care/PT/OT per ortho Monitor for Post Op anemia Hb:9.9 today DM II HA1c:6.3 Hold metformin Continue ISS Monitor BGs Chronic Diastolic CHF: No signs of exacerbation Resume lasix tomorrow Renal function back to baseline HTN Labile likely secondary to pain Continue current meds Hold lisinopril if renal function worsens COPD No signs of Exacerbation Continue home inhalers Continue oxygen 2L NC at bedtime HYPOTHYROIDISM Continue levothyroxine TSH: elevated Needs repeat thyroid function test as outpatient HLD Continue statin DEPRESSION Continue home meds GERD Continue PPI STRESS INCONTINENCE Continue oxybutynin DVT Px: Per ortho Code Status Full code Disposition Per Primary Team Vital Signs: Date Time Temp Pulse Resp B/P (MAP) Pulse Ox O2 Delivery O2 Flow Rate FiO2 10/15/17 15:44 68 16 90 Room Air 10/15/17 15:02 36.9 70 17 153/84 (107) 95 Room Air 10/15/17 11:02 36.6 69 16 135/79 (97) 90 Room Air 10/15/17 08:14 Room Air 10/15/17 07:09 65 16 96 Nasal Cannula 3.0 10/15/17 06:56 36.7 64 16 121/74 (90) 96 3.0 10/15/17 03:05 36.8 74 17 109/69 (82) 92 Nasal Cannula 3.0 10/14/17 23:25 84 16 94 Nasal Cannula 3.0 10/14/17 23:08 36.9 79 15 152/75 (100) 94 Nasal Cannula 3.0 Lab Results: Results Past 24 Hours Test 10/14/17 20:46 10/15/17 05:11 10/15/17 08:20 10/15/17 11:53 Range/Units Bedside Glucose 160 111 113 70-90 mg/dl White Blood Count 6.60 4.8-10.8 K/uL Red Blood Count 3.83 4.2-5.4 M/uL Hemoglobin 9.9 12.0-16.0 g/dL Hematocrit 32.7 37-47 % Mean Corpuscular Volume 85.4 80-100 fL Mean Corpuscular Hemoglobin 25.8 25-34 pg Mean Corpuscular Hemoglobin Concent 30.3 32-36 g/dl RDW Standard Deviation 62.5 36.4-46.3 fL RDW Coefficient of Variation 20.2 11.5-14.5 % Platelet Count 249 130-400 K/uL Mean Platelet Volume 8.9 7.4-10.4 fL Nucleated RBC Absolute Count (auto) 0.02 0-0 K/uL Nucleated Red Blood Cells % 0.3 % Sodium Level 139 136-145 mmol/L Potassium Level 4.8 3.5-5.1 mmol/L Chloride Level 105 98-107 mmol/L Carbon Dioxide Level 31 21-32 mmol/L Anion Gap 3.0 3-11 mmol/L Blood Urea Nitrogen 14 7-18 mg/dl Creatinine 1.15 0.60-1.20 mg/dl Est Creatinine Clear Calc Drug Dose 81.1 ml/min Estimated GFR () 60.3 Estimated GFR (Non- 52.0 BUN/Creatinine Ratio 12.1 10-20 Random Glucose 121 70-99 mg/dl Estimated Average Glucose 134 mg/dl Hemoglobin A1c 6.3 4.5-5.6 % Calcium Level 7.8 8.5-10.1 mg/dl Test 10/15/17 16:49 Range/Units Bedside Glucose 122 70-90 mg/dl
[2017-10-15] MEDS: SENNA 8.6 MG TAB PO SCH (21:25)
[2017-10-15] MEDS: ARIPIprazole TAB 10 MG TAB PO SCH (21:27)
[2017-10-15] MEDS: TRAZODONE HCL 100 MG TAB PO SCH (21:28)
[2017-10-15] MEDS: SIMVASTATIN 40 MG TAB PO SCH (21:28)
[2017-10-16] VITALS (8 sets, daily range): BP systolic 117–130; BP diastolic 74–81; PULSE 63–94; TEMP 36.7–36.9; O2SAT 85–98
[2017-10-16] MEDS: LEVOTHYROXINE 50 MCG TAB PO SCH (05:42)
[2017-10-16] MEDS: ACETAMINOPHEN 500 MG TAB PO SCH ×3 (05:43→21:22)
[2017-10-16 05:47] LABS: HEMATOCRIT 32.1 % (37-47); HEMOGLOBIN 9.7 g/dL (12.0-16.0); MEAN CELL VOLUME 85.8 fL (80-100); MEAN CORPUSCULAR HEMOGLOBIN 25.9 pg (25-34); MEAN CORPUSCULAR HGB CONC 30.2 g/dl (32-36); MEAN PLATELET VOLUME 8.8 fL (7.4-10.4); PLATELET COUNT 254 K/uL (130-400); RED CELL DISTRIBUTION WIDTH CV 20.4 % (11.5-14.5); RED CELL DISTRIBUTION WIDTH SD 63.2 fL (36.4-46.3)
[2017-10-16 06:05] LABS: CALCIUM 8.2 mg/dl (8.5-10.1); CREATININE 1.18 mg/dl (0.60-1.20); POTASSIUM 4.6 mmol/L (3.5-5.1)
[2017-10-16] MEDS: ALBUTEROL 0.083% NEBU SOLN 3 ML VIAL INH SCH ×2 (07:09→14:28)
[2017-10-16] MEDS: METOPROLOL SUCC 50MG EXT REL TAB PO SCH ×2 (08:18→21:14)
[2017-10-16] MEDS: MULTIVITAMIN TAB PO SCH (08:18)
[2017-10-16] MEDS: LISINOPRIL 10 MG TAB PO SCH ×2 (08:18→21:16)
[2017-10-16] MEDS: OXYBUTYNIN CHLORIDE 5 MG TAB PO SCH ×2 (08:18→21:14)
[2017-10-16] MEDS: PANTOprazole SOD 40 MG TAB PO SCH (08:18)
[2017-10-16] MEDS: DOCUSATE SODIUM 100 MG CAP PO SCH ×2 (08:19→21:17)
[2017-10-16] MEDS: POTASSIUM CHLORIDE 10 MEQ TABCR PO SCH (08:19)
[2017-10-16] MEDS: FERROUS GLUCONATE 324 MG TAB PO SCH ×3 (08:19→17:34)
[2017-10-16] MEDS: ASPIRIN 81 MG ECTAB PO SCH ×2 (08:19→21:20)
[2017-10-16] MEDS: INSULIN ASPART 100 UNITS/ML 3 ML PEN SC SCH ×4 (08:26→21:00)
[2017-10-16] MEDS: INSULIN GLARGINE SOLOSTAR 100 UNITS/ML 3 ML PEN SC SCH ×2 (08:26→21:11)
[2017-10-16] MEDS: AMPHETAMINE ASP/SULF/DEXTRAMPH 10 MG TAB PO SCH ×2 (08:27→12:23)
[2017-10-16] MEDS: OXYCODONE HCL IR 5 MG TAB (IMMEDIATE RELEASE) PO PRN ×3 (08:27→21:12)
--- NOTE | 2017-10-16 09:01 | Orthopedic Progress Note ---
Orthopedic Progress Note Date of Service October 16, 2017. Subjective Post OP Day: 2 Reports: feeling well Objective calves soft nontender, N/V intact, dressing C/D/I (Dressing/drain d/c'd, prevena in place), toes mobile Date Time Temp Pulse Resp B/P (MAP) Pulse Ox O2 Delivery O2 Flow Rate FiO2 10/16/17 08:52 Room Air 10/16/17 07:09 63 16 98 Nasal Cannula 2.0 10/16/17 07:06 36.7 63 14 130/81 (97) 98 Nasal Cannula 2.0 10/16/17 00:05 Room Air 10/15/17 23:11 71 16 98 Nasal Cannula 2.0 10/15/17 22:39 37.0 80 17 121/81 (94) 95 Room Air 10/15/17 19:30 Room Air 10/15/17 15:44 68 16 90 Room Air 10/15/17 15:02 36.9 70 17 153/84 (107) 95 Room Air 10/15/17 11:02 36.6 69 16 135/79 (97) 90 Room Air Laboratory Results 24 Hours: Test 10/16/17 05:18 Hematocrit 32.1 % Hemoglobin 9.7 g/dL Assessment & Plan Assessment: POD 2 s/pr ORIF Left Patella Plan: 1. Med management 2. DVT prophylaxis- ASA 3. D/C planning- possible d/c to [place] on wednesday Inhouse Planning Pain Management: Morphine, Oxy IR DVT Prophylaxis: TEDs, SCDs, ASA Discharge Planning Discharge Planning: uncertain
--- NOTE | 2017-10-16 15:19 | Progress Note ---
Internal Med Progress Note Date of Service: October 16, 2017. Provider Documentation: SUBJECTIVE: Seen and examined at bedside Reports SOB with associated chest tightness and mild wheezing LLE pain is controlled +flatus, No BM yet Denies dizziness, abd pain, nausea No other complaints OBJECTIVE: Vital Signs-as noted below Physical Exam: Vitals signs as noted above General Appearance:Obese, no apparent distress Head: normocephalic, Atraumatic Eyes: normal inspection, EOMI, PERRL Neck: supple, Trachea midline Respiratory/Chest: Decreased breath sounds, Minimal wheezing Cardiovascular: S1, S2, No murmur Abdomen/GI:Soft, Non tender, Bowel sounds present Extremities/Musculoskelatal:normal inspection, LLE in Surgical dressing Neurologic/Psych:AAOX3, grossly no focal neurological deficits Skin: normal color, warm Lab data as noted below. ASSESSMENT & PLAN: S/P ORIF L Patella POD # 2 pain is controlled wound care/PT/OT/ per ortho Monitor for Post Op anemia Hb stable DM II HA1c:6.3 Hold metformin Continue ISS Monitor BGs Chronic Diastolic CHF: No signs of exacerbation Continue lasix Monitor I/Os HTN Labile likely secondary to pain Continue current meds Hold lisinopril if renal function worsens COPD Continue Nebs Continue home inhalers Continue oxygen 2L NC at bedtime HYPOTHYROIDISM Continue levothyroxine TSH: elevated Needs repeat thyroid function test as outpatient HLD Continue statin DEPRESSION Continue home meds GERD Continue PPI STRESS INCONTINENCE Continue oxybutynin DVT Px: Per ortho Code Status Full code Disposition Per Primary Team Vital Signs: Date Time Temp Pulse Resp B/P (MAP) Pulse Ox O2 Delivery O2 Flow Rate FiO2 10/16/17 14:57 36.9 68 18 117/79 (92) 95 10/16/17 14:28 79 16 87 Room Air 10/16/17 08:52 Room Air 10/16/17 07:09 63 16 98 Nasal Cannula 2.0 10/16/17 07:06 36.7 63 14 130/81 (97) 98 Nasal Cannula 2.0 10/16/17 00:05 Room Air 10/15/17 23:11 71 16 98 Nasal Cannula 2.0 10/15/17 22:39 37.0 80 17 121/81 (94) 95 Room Air 10/15/17 19:30 Room Air 10/15/17 15:44 68 16 90 Room Air Lab Results: Results Past 24 Hours Test 10/15/17 16:49 10/15/17 20:56 10/16/17 05:18 10/16/17 07:53 Range/Units Bedside Glucose 122 97 86 70-90 mg/dl White Blood Count 6.70 4.8-10.8 K/uL Red Blood Count 3.74 4.2-5.4 M/uL Hemoglobin 9.7 12.0-16.0 g/dL Hematocrit 32.1 37-47 % Mean Corpuscular Volume 85.8 80-100 fL Mean Corpuscular Hemoglobin 25.9 25-34 pg Mean Corpuscular Hemoglobin Concent 30.2 32-36 g/dl RDW Standard Deviation 63.2 36.4-46.3 fL RDW Coefficient of Variation 20.4 11.5-14.5 % Platelet Count 254 130-400 K/uL Mean Platelet Volume 8.8 7.4-10.4 fL Sodium Level 139 136-145 mmol/L Potassium Level 4.6 3.5-5.1 mmol/L Chloride Level 106 98-107 mmol/L Carbon Dioxide Level 32 21-32 mmol/L Anion Gap 1.0 3-11 mmol/L Blood Urea Nitrogen 15 7-18 mg/dl Creatinine 1.18 0.60-1.20 mg/dl Est Creatinine Clear Calc Drug Dose 79.0 ml/min Estimated GFR () 58.5 Estimated GFR (Non- 50.4 BUN/Creatinine Ratio 12.4 10-20 Random Glucose 86 70-99 mg/dl Calcium Level 8.2 8.5-10.1 mg/dl Test 10/16/17 12:01 Range/Units Bedside Glucose 86 70-90 mg/dl
[2017-10-16] MEDS: FUROSEMIDE 40 MG TAB PO SCH (17:35)
[2017-10-16] MEDS: ALBUT/IPRATROP 3MG/0.5MG NEB 3 ML VIAL INH SCH ×2 (19:39→23:17)
[2017-10-16] MEDS: SIMVASTATIN 40 MG TAB PO SCH (21:13)
[2017-10-16] MEDS: BUDESONIDE/FORMOTEROL FUMARATE 160/4.5 60 PUFFS/INHALER INH SCH (21:15)
[2017-10-16] MEDS: TRAZODONE HCL 100 MG TAB PO SCH (21:16)
[2017-10-16] MEDS: SENNA 8.6 MG TAB PO SCH (21:17)
[2017-10-16] MEDS: ARIPIprazole TAB 10 MG TAB PO SCH (21:17)
[2017-10-17] VITALS (8 sets, daily range): BP systolic 109–123; BP diastolic 69–75; PULSE 63–78; TEMP 36.8–36.9; O2SAT 92–97
[2017-10-17] MEDS: OXYCODONE HCL IR 5 MG TAB (IMMEDIATE RELEASE) PO PRN ×5 (01:36→23:28)
[2017-10-17] MEDS: ALBUT/IPRATROP 3MG/0.5MG NEB 3 ML VIAL INH SCH ×6 (03:23→23:15)
[2017-10-17 05:48] LABS: HEMATOCRIT 34.2 % (37-47); HEMOGLOBIN 10.4 g/dL (12.0-16.0); MEAN CELL VOLUME 85.3 fL (80-100); MEAN CORPUSCULAR HEMOGLOBIN 25.9 pg (25-34); MEAN CORPUSCULAR HGB CONC 30.4 g/dl (32-36); MEAN PLATELET VOLUME 8.4 fL (7.4-10.4); NUCLEATED RED BLOOD CELL ABS 0.03 K/uL (0-0); PLATELET COUNT 242 K/uL (130-400); RED CELL DISTRIBUTION WIDTH CV 20.8 % (11.5-14.5); RED CELL DISTRIBUTION WIDTH SD 62.7 fL (36.4-46.3); WHITE BLOOD COUNT 5.85 K/uL (4.8-10.8)
[2017-10-17] MEDS: ACETAMINOPHEN 500 MG TAB PO SCH ×3 (05:48→21:26)
[2017-10-17] MEDS: LEVOTHYROXINE 50 MCG TAB PO SCH (05:48)
--- NOTE | 2017-10-17 08:00 | Orthopedic Progress Note ---
Orthopedic Progress Note Date of Service October 17, 2017. Subjective Post OP Day: 3 Reports: feeling well Objective N/V intact, dressing C/D/I, toes mobile Date Time Temp Pulse Resp B/P (MAP) Pulse Ox O2 Delivery O2 Flow Rate FiO2 10/17/17 07:19 36.9 63 18 109/69 (82) 97 Nasal Cannula 2.0 10/17/17 06:57 78 16 93 Nasal Cannula 2.0 10/16/17 23:30 Nasal Cannula 2.0 10/16/17 23:17 74 16 95 Nasal Cannula 2.0 10/16/17 23:09 94 Nasal Cannula 2.0 10/16/17 23:05 36.9 94 16 130/74 (92) 85 Room Air 10/16/17 20:00 Room Air 10/16/17 19:39 78 16 97 Nasal Cannula 2.0 10/16/17 14:57 36.9 68 18 117/79 (92) 95 10/16/17 14:28 79 16 87 Room Air 10/16/17 08:52 Room Air Laboratory Results 24 Hours: Test 10/17/17 05:13 Hematocrit 34.2 % Hemoglobin 10.4 g/dL Assessment & Plan Assessment: POD 3 s/p ORIF Left Patella Plan: 1. Med management 2. DVT prophylaxis- ASA 3. D/C planning- d/c to [place] on wednesday Inhouse Planning Pain Management: Morphine, Oxy IR DVT Prophylaxis: TEDs, SCDs, ASA Discharge Planning Discharge Planning: uncertain
[2017-10-17] MEDS: AMPHETAMINE ASP/SULF/DEXTRAMPH 10 MG TAB PO SCH ×2 (08:21→12:22)
[2017-10-17] MEDS: PANTOprazole SOD 40 MG TAB PO SCH (08:21)
[2017-10-17] MEDS: POTASSIUM CHLORIDE 10 MEQ TABCR PO SCH (08:22)
[2017-10-17] MEDS: FERROUS GLUCONATE 324 MG TAB PO SCH ×3 (08:22→17:16)
[2017-10-17] MEDS: METOPROLOL SUCC 50MG EXT REL TAB PO SCH ×2 (08:22→21:24)
[2017-10-17] MEDS: DOCUSATE SODIUM 100 MG CAP PO SCH ×2 (08:22→21:25)
[2017-10-17] MEDS: LISINOPRIL 10 MG TAB PO SCH ×2 (08:22→21:26)
[2017-10-17] MEDS: MULTIVITAMIN TAB PO SCH (08:22)
[2017-10-17] MEDS: ASPIRIN 81 MG ECTAB PO SCH ×2 (08:22→21:24)
[2017-10-17] MEDS: BUDESONIDE/FORMOTEROL FUMARATE 160/4.5 60 PUFFS/INHALER INH SCH ×2 (08:22→21:23)
[2017-10-17] MEDS: OXYBUTYNIN CHLORIDE 5 MG TAB PO SCH ×2 (08:23→21:28)
[2017-10-17] MEDS: FUROSEMIDE 40 MG TAB PO SCH ×2 (08:25→17:00)
[2017-10-17] MEDS: INSULIN ASPART 100 UNITS/ML 3 ML PEN SC SCH ×4 (08:33→21:18)
[2017-10-17] MEDS: INSULIN GLARGINE SOLOSTAR 100 UNITS/ML 3 ML PEN SC SCH ×2 (08:34→21:19)
--- NOTE | 2017-10-17 15:19 | Progress Note ---
Internal Med Progress Note Date of Service: October 17, 2017. Provider Documentation: SUBJECTIVE: Seen and examined at bedside Doing well today SOB and wheezing much improved chest tightness resolved LLE pain is controlled +flatus, No BM yet Denies chest pain, dizziness, abd pain, nausea No other complaints OBJECTIVE: Vital Signs-as noted below Physical Exam: Vitals signs as noted above General Appearance:Obese, no apparent distress Head: normocephalic, Atraumatic Eyes: normal inspection, EOMI, PERRL Neck: supple, Trachea midline Respiratory/Chest: Decreased breath sounds, CTA Cardiovascular: S1, S2, No murmur Abdomen/GI:Soft, Non tender, Bowel sounds present Extremities/Musculoskelatal:normal inspection, LLE in Surgical dressing Neurologic/Psych:AAOX3, grossly no focal neurological deficits Skin: normal color, warm Lab data as noted below. ASSESSMENT & PLAN: S/P ORIF L Patella POD # 3 pain is controlled wound care/PT/OT/ per ortho Monitor for Post Op anemia Hb stable DM II HA1c:6.3 Hold metformin Continue ISS Monitor BGs Chronic Diastolic CHF: No signs of exacerbation Continue lasix Monitor I/Os HTN stable Continue current meds Hold lisinopril if renal function worsens COPD Continue Nebs Continue home inhalers Continue oxygen 2L NC at bedtime HYPOTHYROIDISM Continue levothyroxine TSH: elevated Needs repeat thyroid function test as outpatient HLD Continue statin DEPRESSION Continue home meds GERD Continue PPI STRESS INCONTINENCE Continue oxybutynin DVT Px: Per ortho Code Status Full code Disposition Per Primary Team Vital Signs: Date Time Temp Pulse Resp B/P (MAP) Pulse Ox O2 Delivery O2 Flow Rate FiO2 10/17/17 14:52 74 16 93 Room Air 10/17/17 14:15 36.9 68 18 123/75 (91) 92 Room Air 10/17/17 07:19 36.9 63 18 109/69 (82) 97 Nasal Cannula 2.0 10/17/17 06:57 78 16 93 Nasal Cannula 2.0 10/16/17 23:30 Nasal Cannula 2.0 10/16/17 23:17 74 16 95 Nasal Cannula 2.0 10/16/17 23:09 94 Nasal Cannula 2.0 10/16/17 23:05 36.9 94 16 130/74 (92) 85 Room Air 10/16/17 20:00 Room Air 10/16/17 19:39 78 16 97 Nasal Cannula 2.0 Lab Results: Results Past 24 Hours Test 10/16/17 16:47 10/16/17 20:26 10/17/17 05:13 10/17/17 07:38 Range/Units Bedside Glucose 90 80 88 70-90 mg/dl White Blood Count 5.85 4.8-10.8 K/uL Red Blood Count 4.01 4.2-5.4 M/uL Hemoglobin 10.4 12.0-16.0 g/dL Hematocrit 34.2 37-47 % Mean Corpuscular Volume 85.3 80-100 fL Mean Corpuscular Hemoglobin 25.9 25-34 pg Mean Corpuscular Hemoglobin Concent 30.4 32-36 g/dl RDW Standard Deviation 62.7 36.4-46.3 fL RDW Coefficient of Variation 20.8 11.5-14.5 % Platelet Count 242 130-400 K/uL Mean Platelet Volume 8.4 7.4-10.4 fL Nucleated RBC Absolute Count (auto) 0.03 0-0 K/uL Nucleated Red Blood Cells % 0.5 % Test 10/17/17 11:53 Range/Units Bedside Glucose 94 70-90 mg/dl
[2017-10-17] MEDS: SENNA 8.6 MG TAB PO SCH (21:24)
[2017-10-17] MEDS: SIMVASTATIN 40 MG TAB PO SCH (21:25)
[2017-10-17] MEDS: TRAZODONE HCL 100 MG TAB PO SCH (21:25)
[2017-10-17] MEDS: ARIPIprazole TAB 10 MG TAB PO SCH (21:27)
[2017-10-18] VITALS (7 sets, daily range): BP systolic 115–135; BP diastolic 65–76; PULSE 58–72; TEMP 36.6–37; O2SAT 90–97
[2017-10-18] MEDS: ALBUT/IPRATROP 3MG/0.5MG NEB 3 ML VIAL INH SCH ×4 (03:27→15:07)
[2017-10-18 05:37] LABS: HEMATOCRIT 33.5 % (37-47); HEMOGLOBIN 10.1 g/dL (12.0-16.0); MEAN CELL VOLUME 85.9 fL (80-100); MEAN CORPUSCULAR HEMOGLOBIN 25.9 pg (25-34); MEAN CORPUSCULAR HGB CONC 30.1 g/dl (32-36); MEAN PLATELET VOLUME 8.5 fL (7.4-10.4); PLATELET COUNT 242 K/uL (130-400); RED CELL DISTRIBUTION WIDTH CV 20.7 % (11.5-14.5); RED CELL DISTRIBUTION WIDTH SD 63.7 fL (36.4-46.3); WHITE BLOOD COUNT 5.16 K/uL (4.8-10.8)
[2017-10-18] MEDS: LEVOTHYROXINE 50 MCG TAB PO SCH (05:55)
[2017-10-18] MEDS: ACETAMINOPHEN 500 MG TAB PO SCH ×2 (05:55→13:34)
[2017-10-18 05:59] LABS: CALCIUM 8.6 mg/dl (8.5-10.1); CREATININE 1.18 mg/dl (0.60-1.20); POTASSIUM 4.6 mmol/L (3.5-5.1)
[2017-10-18] MEDS ORDERED: ASPI-320 PO (06:56)
[2017-10-18] MEDS ORDERED: OXYC-57 PO (06:56)
[2017-10-18] MEDS ORDERED: PROM25TA9 PO (06:56)
--- NOTE | 2017-10-18 07:01 | Discharge Instructions ---
Discharge Instructions Date of Service October 18, 2017. Admission Reason for Admission: Left Patella Fracture Discharge Discharge Diagnosis / Problem: left patella fracture, history of a left total knee arthroplasty Discharge Goals Goal(s): Decrease discomfort, Improve function Activity Recommendations Activity Level: Up Ad Liz Therapies: Physical Therapy, Occupational Therapy Weightbearing Status: Left non-weightbearing . Additional Information Patient informed of condition: Yes Advance Directives: Yes DNR: No Level of Care: Acute Rehab Communicable Disease: No Prognosis: Stable Instructions / Follow-Up Instructions / Follow-Up ACTIVITY RECOMMENDATIONS: Limitations: No weight bearing to affected limb at all times. SPECIAL CARE INSTRUCTIONS: * Prevena- This is a large suction dressing covering your incision. This will help pull any excess drainage from the wound and allow your incision to heal properly. You may shower with this if you can keep the unit outside of the shower. If any bleeding or leakage is noted please call your doctor's office. This will remain on your incision for 7 days and then should be removed. This can be done yourself or by the home nursing staff if applicable. The entire unit is disposable once removed. Once removed, keep incision clean and dry. If redness or drainage is noted, please call your surgeon. * Must wear knee immobilizer at all times. NO RANGE OF MOTION OF THE LEFT KNEE UNTIL INSTRUCTED BY DR. ADORNO'S TEAM. * Some drainage onto the dressing is normal and is no cause for alarm. * Some swelling is natural especially after walking. * When resting, keep your foot elevated above the level of your heart. * Call [facility] if you notice: -Increased drainage -Fever over 101 degrees F -Severe constant pain BANDAGE: * Leave bandage/cast in place unless otherwise directed. * Keep bandage/cast dry at all times. FOLLOW UP VISIT WITH DR. ADORNO If appointment is not already scheduled: Please call [facility] after you get home today to schedule a follow-up appointment for [address] Adorno at . Current Hospital Diet Patient's current hospital diet: Diabetes Type 2 Diet, AHA Diet (Heart Healthy) Discharge Diet Recommended Diet: AHA Diet (Heart Healthy) Procedures Procedures Performed: 1. Left Knee Open Reduction Internal Fixation Patella 2. Enhanced difficulty due to patient size Pending Studies Studies pending at discharge: no Laboratory Results Hemoglobin A1c Test 10/15/17 05:11 Range/Units Estimated Average Glucose 134 mg/dl Hemoglobin A1c 6.3 H 4.5-5.6 % Medical Emergencies . Who to Call and When: Medical Emergencies: If at any time you feel your situation is an emergency, please call 911 immediately. . Non-Emergent Contact Non-Emergency issues call your: Surgeon Call Non-Emergent contact if: temperature is above 101, your pain is not controlled, your pain is worsening, wound has increased drainage, wound has increased redness . . "Provider Documentation" section prepared by Raúl Glez. . Core Measure Problem Core Measures: None
[2017-10-18] MEDS: AMPHETAMINE ASP/SULF/DEXTRAMPH 10 MG TAB PO SCH ×2 (08:09→12:28)
[2017-10-18] MEDS: MULTIVITAMIN TAB PO SCH (08:10)
[2017-10-18] MEDS: POTASSIUM CHLORIDE 10 MEQ TABCR PO SCH (08:11)
[2017-10-18] MEDS: PANTOprazole SOD 40 MG TAB PO SCH (08:11)
[2017-10-18] MEDS: OXYBUTYNIN CHLORIDE 5 MG TAB PO SCH (08:11)
[2017-10-18] MEDS: METOPROLOL SUCC 50MG EXT REL TAB PO SCH (08:11)
[2017-10-18] MEDS: DOCUSATE SODIUM 100 MG CAP PO SCH (08:11)
[2017-10-18] MEDS: ASPIRIN 81 MG ECTAB PO SCH (08:12)
[2017-10-18] MEDS: FUROSEMIDE 40 MG TAB PO SCH ×2 (08:12→16:40)
[2017-10-18] MEDS: LISINOPRIL 10 MG TAB PO SCH (08:12)
[2017-10-18] MEDS: BUDESONIDE/FORMOTEROL FUMARATE 160/4.5 60 PUFFS/INHALER INH SCH (08:13)
[2017-10-18] MEDS: FERROUS GLUCONATE 324 MG TAB PO SCH ×2 (08:13→12:28)
[2017-10-18] MEDS: INSULIN ASPART 100 UNITS/ML 3 ML PEN SC SCH ×2 (08:17→12:00)
[2017-10-18] MEDS: INSULIN GLARGINE SOLOSTAR 100 UNITS/ML 3 ML PEN SC SCH (08:18)
--- NOTE | 2017-10-18 08:22 | Orthopedic Progress Note ---
Orthopedic Progress Note Date of Service October 18, 2017. Subjective Post OP Day: 4 Reports: feeling well, Denies: chest pain, SOB, nausea / vomiting, light headedness, calf pain Objective calves soft nontender, N/V intact, capillary refill less than 2 sec., dressing C /D/I (PREVENA), A&O x3, toes mobile KNEE IMMOBILIZER IN PLACE Date Time Temp Pulse Resp B/P (MAP) Pulse Ox O2 Delivery O2 Flow Rate FiO2 10/18/17 07:35 Nasal Cannula 2.0 10/18/17 07:10 36.6 58 16 135/76 (95) 97 Nasal Cannula 2.0 10/18/17 07:03 63 16 97 Nasal Cannula 2.0 10/17/17 23:15 68 16 97 Nasal Cannula 2.0 10/17/17 23:07 Nasal Cannula 2.0 10/17/17 22:57 36.8 73 18 121/71 (88) 96 Nasal Cannula 2.0 10/17/17 21:14 65 112/72 (85) 10/17/17 19:19 63 16 93 Nasal Cannula 2.0 10/17/17 14:52 74 16 93 Room Air 10/17/17 14:15 36.9 68 18 123/75 (91) 92 Room Air 10/17/17 14:00 Room Air Laboratory Results 24 Hours: Test 10/18/17 05:10 Hematocrit 33.5 % Hemoglobin 10.1 g/dL Assessment & Plan Assessment: POD 4 s/p ORIF Left Patella Plan: 1. Med management 2. DVT prophylaxis- ASA 81MG BID 3. D/C planning- d/c to [place] on wednesday IF BED AVAILABLE 4. NWB. KNEE IMMOBILIZER AT ALL TIMES. 5. PAIN MANAGEMENT- PAIGE Inhouse Planning Pain Management: Morphine, Oxy IR DVT Prophylaxis: TEDs, SCDs, ASA Discharge Planning Discharge Planning: uncertain
[2017-10-18] MEDS: OXYCODONE HCL IR 5 MG TAB (IMMEDIATE RELEASE) PO PRN ×2 (09:25→13:54)
== END 2017-10-18 17:06 | DRG 516 ==
LOC: C.ACU 05:37 → C.3E 07:12 → ENRESERV 11:42
PROVIDERS: ADMIT Orthopaedic Surgery Sports Medicine; ATTEND Orthopaedic Surgery Sports Medicine
PROC: 0QSF04Z Reposition Left Patella with Internal Fixation Device, Open Approach (ICD-10-PCS; principal; 2017-10-14 07:30)
DX: S82.092A Other fracture of left patella, initial encounter for closed fracture (principal); Z68.42 Body mass index [BMI] 45.0-49.9, adult; I50.32 Chronic diastolic (congestive) heart failure; E66.01 Morbid (severe) obesity due to excess calories; J44.9 Chronic obstructive pulmonary disease, unspecified; E11.9 Type 2 diabetes mellitus without complications; E78.5 Hyperlipidemia, unspecified; E03.9 Hypothyroidism, unspecified; K21.9 Gastro-esophageal reflux disease without esophagitis; N39.3 Stress incontinence (female) (male); F32.9 Major depressive disorder, single episode, unspecified; I11.0 Hypertensive heart disease with heart failure; I27.20 Pulmonary hypertension, unspecified; Z79.899 Other long term (current) drug therapy; Z79.84 Long term (current) use of oral hypoglycemic drugs; Z79.82 Long term (current) use of aspirin; Z96.652 Presence of left artificial knee joint; Z95.2 Presence of prosthetic heart valve; Z87.891 Personal history of nicotine dependence; Z88.0 Allergy status to penicillin; Z88.8 Allergy status to other drugs, medicaments and biological substances; Z83.3 Family history of diabetes mellitus; Z82.49 Family history of ischemic heart disease and other diseases of the circulatory system; W19.XXXA Unspecified fall, initial encounter; Y93.01 Activity, walking, marching and hiking; Y99.8 Other external cause status